=== PATIENT | female | born 1945 | race Caucasian/White ===

== ENCOUNTER → 2018-03-04 14:42 | Outpatient (CLI) | payer MEDICARE, OTHER, SELFPAY | PROVIDERS: Family Provider Internal Medicine; PCP Internal Medicine; Visit Provider Internal Medicine | DX: I87.2 Venous insufficiency (chronic) (peripheral) (principal); L97.811 Non-pressure chronic ulcer of other part of right lower leg limited to breakdown of skin | CPT/HCPCS: 11042; 99213 ==

== ENCOUNTER → 2018-03-12 13:27 | Outpatient (CLI) | payer MEDICARE, OTHER, SELFPAY | PROVIDERS: Family Provider Internal Medicine; PCP Internal Medicine; Visit Provider Internal Medicine | DX: S81.801A Unspecified open wound, right lower leg, initial encounter (principal) | CPT/HCPCS: 11042 ==

== ENCOUNTER → 2018-03-18 13:58 | Outpatient (CLI) | payer MEDICARE, OTHER, SELFPAY ==
--- NOTE | 2018-03-18 | DI.MRI.S_ITS ---
PROCEDURE: MR HEAD/BRAIN WO CON INDICATIONS: ALZHEIMER'S DISEASE TECHNIQUE: Non-contrast axial T1 spin echo, axial T2 fast spin echo, sagittal and axial FLAIR, coronal T2 fast spin echo, axial gradient echo, axial diffusion and ADC through the brain. COMPARISON: None. FINDINGS: Image quality: Excellent. CSF spaces: Ventricles appear symmetric in size and shape. Basal cisterns are patent. No extra-axial fluid collections. Brain: No intracranial bleeds or mass effects. There is mild cerebral volume loss for age. Minimal periventricular white matter chronic small vessel ischemic changes are noted. Brainstem appears normal. Diffusion-weighted images show no acute ischemic insults. No chronic ischemic insults. Normal intravascular flow voids are present. Skull and face: Calvarial bone marrow is normal in signal. Orbits are normal. Sinuses: There are small mucus retention cysts or polyps in maxillary sinuses bilaterally. Mastoids are clear. IMPRESSION: 1. No acute intracranial abnormalities. 2. Mild cerebral volume loss and minimal periventricular white matter chronic small vessel ischemic changes. 3. Small mucous retention cysts versus polyps in maxillary sinuses bilaterally. Dictated by: Arminda Hillman M.D. on 03/18/2018 at 13:50 Approved by: Arminda Hillman M.D. on 03/18/2018 at 15:33
== END ==
PROVIDERS: Family Provider Internal Medicine; PCP Internal Medicine; Visit Provider Internal Medicine
DX: G30.9 Alzheimer's disease, unspecified (principal); F02.80 Dementia in other diseases classified elsewhere, unspecified severity, without behavioral disturbance, psychotic disturbance, mood disturbance, and anxiety
CPT/HCPCS: 70551

== ENCOUNTER → 2018-03-19 10:18 | Outpatient (CLI) | payer MEDICARE, OTHER, SELFPAY | PROVIDERS: Family Provider Internal Medicine; PCP Internal Medicine; Visit Provider Internal Medicine | DX: L08.9 Local infection of the skin and subcutaneous tissue, unspecified (principal); S81.801A Unspecified open wound, right lower leg, initial encounter | CPT/HCPCS: 11042; 87070; 87075; 87205 ==

== ENCOUNTER → 2018-04-02 10:49 | Outpatient (CLI) | payer MEDICARE, OTHER, SELFPAY ==
--- NOTE | 2018-04-02 | OV.WND_ITS ---
Progress Note Details Patient Name: Jane Cardenas Patient Number: [id number] Patient Date of : 1945 Patient Date: 04/02/2018 Clinician: Naima Estrada Clinician Cosigner: Ivanna Sahni Physician / Reinforcing [employer] Machine Operator: Peyman Pereira SUBJECTIVE Chief Complaint This information was obtained from the patient Non-healing leg wound to R lower leg. Allergies penicillin HPI This information was obtained from the patient 04/02/18. Seen by Dr. Pereira. The patient does not report significant drainage associated with the chronic right lower leg trauma wound since her last visit. 03/19/18. Seen by Dr. Pereira. The patient does not report significant drainage associated with the chronic right lower leg trauma wound since her last visit and in general feels its beginning to improve. 03/12/18. Seen by Dr. Pereira. The patient does not report pain or significant drainage associated with the chronic right lower leg trauma wound since her last visit. 03/04/18. Seen by Dr. Pereira. The patient's new to our clinic and presents with a right lower leg trauma wound that's been present for about 6 weeks. She was seen in the walk in clinic recently and started on Bactrim for an associated infection. Past Medical History This information was obtained from the patient Patient has a medical history of: Osteoporosis Hyperthyroidism Dementia Complaints and Symptoms This information was obtained from the patient Patient complains of: General Notes: I have reviewed and concur with the Review of Systems and Past Family Social History documents completed by the clinician, I have reviewed and concur with the Wound Assessment document completed by the clinician Integumentary (Hair/Skin/Nails): Hemosiderin Staining, Open Sore Prior Wound History: Drainage, Erythema, Pain Psychiatric: Memory Loss Patient denies complaints or symptoms related to: Cardiovascular (Central): Irregular heart beat Cardiovascular (Central/Peripheral): Intermittent Claudication, Lower extremity (leg) resting pain, Lower extremity (leg) swelling Constitutional Symptoms (General Health): Fever Ear/Nose/Mouth/Throat: Hearing Loss / Aid Hematologic/Lymphatic: Bleeding / Clotting Disorders, Bleeding Tendency Neurological: Loss of Protective Sensation Respiratory: Shortness of Breath OBJECTIVE Constitutional BP elevated; Afebrile; Alert and in no distress. Well developed. Alert. Clean appearing.. Height/Length: 66 in (167.64 cm), Weight: 115.3 lbs (52.41 kgs), BMI: 18.6, Temperature: 97.8 ?F (36.56 ?C), Pulse: 54 bpm, Respiratory Rate: 18 breaths/min, Blood Pressure: 179/72 mmHg, Pulse Oximetry: 99 %. Ears, Nose, Mouth, and Throat: No clinically significant hearing loss on informal examination. Cardiovascular: 1+ right lower extremity edema. Integumentary (Hair, Skin) No periwound erythema, warmth, or significant drainage. No periwound rashes appreciated or noted otherwise.. Refer to appropriate clinician wound documentation for this visit; left lower leg wound extends to subcut with base partially covered with pink granulation, remainder fibrin and slough; improved in terms of epithelialization and granulation. Wound #1 Right Leg is a chronic Trauma Wound and has received a status of Not Healed. Subsequent wound encounter measurements are 1.3cm length x 0.7cm width x 0.1cm depth, with an area of 0.91 sq cm and a volume of 0.091 cubic cm. Hypergranulation was noted. No tunneling has been noted. No sinus tract has been noted. No undermining has been noted. There is a small amount of sero-sanguineous drainage noted which has no odor. The patient reports a wound pain of level 0/10. The wound margin is attached. Wound bed has Yes epithelialization, No eschar, Yes slough, Yes bright red, pink, firm granulation. The periwound skin texture is normal. The periwound skin moisture is normal. The periwound skin exhibited: Hemosiderosis. The temperature of the periwound skin is WNL. Periwound skin does not exhibit signs or symptoms of infection. Local Pulse is Palpable. Neurological: Cranial nerves grossly intact with symmetric function normal by informal observation.. ASSESSMENT Active Problems ICD-10 (Encounter Diagnosis) S81.801D - Unspecified open wound, right lower leg, subsequent encounter PROCEDURES Wound #1 Wound #1 (Trauma Wound) is located on the right leg. A skin/subcutaneous tissue level surgical debridement with a total area debrided of 1.19 sq cm was performed by Peyman Pereira MD. Subcutaneous was removed along with devitalized tissue: slough. The following instrument(s) were used: curette. Pain control was achieved using 4% Lido. A time out was conducted prior to the start of the procedure. A minimal amount of bleeding was controlled with pressure. The procedure was tolerated well with a pain level of 0 throughout and a pain level of 0 following the procedure. Post Debridement Measurements: 1.7cm length x 0.7cm width x 0.2cm depth; with an area of 1.19 sq cm and a volume of 0.238 cubic cm; PLAN Wound Orders: Wound #1 Right Leg Anesthetic Topical Xylocaine to wound bed. - In clinic only Cleanser Cleanse Wound: - Normal saline in clinic. May use distill water at home. Rinse and gentle wipe with clean gauze. May Shower. - Please avoid tap water. Cover while in the shower. May use a cast protector purchased from pharmacy. Dressings Primary dressing: - Bordered foam Change Dressing: - Every other day Additional Orders: Follow-Up Appointments Return Appointment: - - One week Other information: If you develop fever, chills, increased pain, drainage, redness or swelling please call our office. If after hours, respond to the ER. Should you experience any significant changes in your wound(s) or have any questions regarding your home care instructions please contact the wound center @ [phone]. If after hours, contact your primary care physician or go to the hospital emergency room. Scribing Attestation I attest, as the nurse, that I scribed these orders for the physician. I've reviewed the clinician's documentation and agree with the evaluation and plan as written. In addition, the patient's ulcer demonstrates evidence of non-viable devitalized tissue which will continue to benefit from sharp debridement to help promote granulation and expedite healing. Electronic Signature(s) Signed By: Date: Peyman Pereira MD 04/03/2018 08:42:30 Entered By: Peyman Pereira on 04/02/2018 11:43:33
== END ==
PROVIDERS: Family Provider Internal Medicine; PCP Internal Medicine; Visit Provider Internal Medicine
DX: S81.801A Unspecified open wound, right lower leg, initial encounter (principal)
CPT/HCPCS: 11042

== ENCOUNTER → 2018-04-09 11:47 | Outpatient (CLI) | payer MEDICARE, OTHER, SELFPAY ==
--- NOTE | 2018-04-09 | OV.WND_ITS ---
Progress Note Details Patient Name: Jane Cardenas Patient Number: [id number] Patient Date of : 1945 Patient Date: 04/09/2018 Clinician: Naima Estrada Physician / Asian Studies Professor: Adal Delarosa SUBJECTIVE Chief Complaint This information was obtained from the patient Non-healing leg wound to R lower leg. Allergies penicillin HPI This information was obtained from the patient 04/09/18. Seen by Antonio Delarosa PA-C. The patient reports no increase in drainage from her right lower leg wound since her last evaluation. 04/02/18. Seen by Dr. Pereira. The patient does not report significant drainage associated with the chronic right lower leg trauma wound since her last visit. 03/19/18. Seen by Dr. Pereira. The patient does not report significant drainage associated with the chronic right lower leg trauma wound since her last visit and in general feels its beginning to improve. 03/12/18. Seen by Dr. Pereira. The patient does not report pain or significant drainage associated with the chronic right lower leg trauma wound since her last visit. 03/04/18. Seen by Dr. Pereira. The patient's new to our clinic and presents with a right lower leg trauma wound that's been present for about 6 weeks. She was seen in the walk in clinic recently and started on Bactrim for an associated infection. 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 Past Medical History This information was obtained from the patient Patient has a medical history of: Osteoporosis Hyperthyroidism Dementia Complaints and Symptoms This information was obtained from the patient Patient complains of: General Notes: I have reviewed and concur with the Review of Systems and Past Family Social History documents completed by the clinician, I have reviewed and concur with the Wound Assessment document completed by the clinician Integumentary (Hair/Skin/Nails): Hemosiderin Staining, Open Sore Prior Wound History: Drainage, Erythema, Pain Psychiatric: Memory Loss Patient denies complaints or symptoms related to: Cardiovascular (Central): Irregular heart beat Cardiovascular (Central/Peripheral): Intermittent Claudication, Lower extremity (leg) resting pain, Lower extremity (leg) swelling Constitutional Symptoms (General Health): Fever Ear/Nose/Mouth/Throat: Hearing Loss / Aid Hematologic/Lymphatic: Bleeding / Clotting Disorders, Bleeding Tendency Neurological: Loss of Protective Sensation Respiratory: Shortness of Breath OBJECTIVE Constitutional Vital signs reviewed and noted. Well developed, lucid, and in no acute distress. . Height/Length: 66 in (167.64 cm), Weight: 117.3 lbs (53.32 kgs), BMI: 18.9, Temperature: 98.7 ?F (37.06 ?C), Pulse: 61 bpm, Respiratory Rate: 18 breaths/min, Blood Pressure: 163/77 mmHg, Pulse Oximetry: 99 %. Eyes: Conjunctiva clear and without icterus. Pupils are equal and round; EOM's intact. Ears, Nose, Mouth, and Throat: External inspection of ears and nose appear normal and without suspicous lesions. Respiratory: No respiratory distress. Even respirations and without use of accessory muscles.. Gastrointestinal (GI): Non-obese. Nondistended.. Integumentary (Hair, Skin) Refer to appropriate clinician wound documentation for this visit; ulcer extends to subcutaneous fat layer. . Wound #1 Right Leg is a chronic Trauma Wound and has received a status of Not Healed. Subsequent wound encounter measurements are 0.1cm length x 0.1cm width x 0.1cm depth, with an area of 0.01 sq cm and a volume of 0.001 cubic cm. Hypergranulation was noted. No tunneling has been noted. No sinus tract has been noted. No undermining has been noted. There is a scant amount of none drainage noted which has no odor. The patient reports a wound pain of level 0/10. The wound margin is attached. Wound bed has Yes epithelialization, No eschar, Yes slough, No granulation. The periwound skin texture is normal. The periwound skin moisture is normal. The periwound skin exhibited: Hemosiderosis. The temperature of the periwound skin is WNL. Periwound skin does not exhibit signs or symptoms of infection. Local Pulse is Palpable. Psychiatric: Normal affect. Mood appropriate.. ASSESSMENT Active Problems ICD-10 (Encounter Diagnosis) S81.801D - Unspecified open wound, right lower leg, subsequent encounter PROCEDURES Wound #1 Wound #1 (Trauma Wound) is located on the right leg. A non-selective mechanical debridement with a total area debrided of 0.02 sq cm was performed by Adal Delarosa PA. Non-viable tissue was removed.The procedure was tolerated well with a pain level of 0 throughout and a pain level of 0 following the procedure. Post Debridement Measurements: 0.1cm length x 0.2cm width x 0.1cm depth; with an area of 0.02 sq cm and a volume of 0.002 cubic cm; General Notes: Drainage removed. PLAN Wound Orders: Wound #1 Right Leg Anesthetic Topical Xylocaine to wound bed. - In clinic only Cleanser Cleanse Wound: - Normal saline in clinic. May use distill water at home. Rinse and gentle wipe with clean gauze. May Shower. - Please avoid tap water. Cover while in the shower. May use a cast protector purchased from pharmacy. Dressings Primary dressing: - Bordered foam Change Dressing: - Every three days. Additional Orders: Follow-Up Appointments Return Appointment: - - two weeks Other information: If you develop fever, chills, increased pain, drainage, redness or swelling please call our office. If after hours, respond to the ER. Should you experience any significant changes in your wound(s) or have any questions regarding your home care instructions please contact the wound center @ [phone]. If after hours, contact your primary care physician or go to the hospital emergency room. Scribing Attestation I attest, as the nurse, that I scribed these orders for the physician. I've reviewed the clinician's documentation and agree with the evaluation and plan as written. The patient's condition continues to be medically complex requiring continued and regular specialty wound care clinic visits. To that end we will continue with routine dressing changes and in clinic medical assessments including surveillance for bacterial infection as well as routine debridements of non-viable tissue when needed. Electronic Signature(s) Signed By: Date: Antonio Delarosa 04/13/2018 12:48:23 Entered By: Antonio Delarosa on 04/13/2018 10:33:37
== END ==
PROVIDERS: Family Provider Internal Medicine; PCP Internal Medicine; Visit Provider Physician Assistant
DX: S81.801D Unspecified open wound, right lower leg, subsequent encounter (principal)
CPT/HCPCS: 99212

== ENCOUNTER → 2018-04-23 10:00 | Outpatient (CLI) | payer MEDICARE, OTHER, SELFPAY ==
--- NOTE | 2018-04-23 | OV.WND_ITS ---
Progress Note Details Patient Name: Jane Cardenas Patient Number: [id number] Patient Date of : 1945 Patient Date: 04/23/2018 Clinician: Brittney Kumar Clinician Cosigner: Naima Estrada Physician / Materials Branch Chief: Peyman Pereira SUBJECTIVE Chief Complaint This information was obtained from the patient Non-healing leg wound to R lower leg. Allergies penicillin HPI This information was obtained from the patient 04/23/18. Seen by Dr. Pereira. The patient does not report significant drainage associated with the chronic right lower leg trauma wound since her last visit. 04/09/18. Seen by Antonio Delarosa PA-C. The patient reports no increase in drainage from her right lower leg wound since her last evaluation. 04/02/18. Seen by Dr. Pereira. The patient does not report significant drainage associated with the chronic right lower leg trauma wound since her last visit. 03/19/18. Seen by Dr. Pereira. The patient does not report significant drainage associated with the chronic right lower leg trauma wound since her last visit and in general feels its beginning to improve. 03/12/18. Seen by Dr. Pereira. The patient does not report pain or significant drainage associated with the chronic right lower leg trauma wound since her last visit. 03/04/18. Seen by Dr. Pereira. The patient's new to our clinic and presents with a right lower leg trauma wound that's been present for about 6 weeks. She was seen in the walk in clinic recently and started on Bactrim for an associated infection. Past Medical History This information was obtained from the patient Patient has a medical history of: Osteoporosis Hyperthyroidism Dementia Complaints and Symptoms This information was obtained from the patient Patient complains of: General Notes: I have reviewed and concur with the Review of Systems and Past Family Social History documents completed by the clinician, I have reviewed and concur with the Wound Assessment document completed by the clinician Integumentary (Hair/Skin/Nails): Hemosiderin Staining, Open Sore Prior Wound History: Drainage, Erythema, Pain Psychiatric: Memory Loss Patient denies complaints or symptoms related to: Cardiovascular (Central): Irregular heart beat Cardiovascular (Central/Peripheral): Intermittent Claudication, Lower extremity (leg) resting pain, Lower extremity (leg) swelling Constitutional Symptoms (General Health): Fever Ear/Nose/Mouth/Throat: Hearing Loss / Aid Hematologic/Lymphatic: Bleeding / Clotting Disorders, Bleeding Tendency Neurological: Loss of Protective Sensation Respiratory: Shortness of Breath OBJECTIVE Constitutional BP elevated; Afebrile; Alert and in no distress. Well developed. Alert. Clean appearing.. Height/Length: 66 in (167.64 cm), Weight: 114.7 lbs (52.14 kgs), BMI: 18.5, Temperature: 98.6 ?F (37 ?C), Pulse: 67 bpm, Respiratory Rate: 18 breaths/min, Blood Pressure : 147/69 mmHg, Pulse Oximetry: 99 %. Respiratory: No respiratory distress. Even respirations and without use of accessory muscles.. Integumentary (Hair, Skin) Hemosiderin staining noted over right lower leg. Refer to appropriate clinician wound documentation for this visit.. Wound #1 Right Leg is a chronic Trauma Wound and has received an outcome of Healed - no new wound(s). Subsequent wound encounter measurements are 0cm length x 0cm width x 0cm depth, with an area of 0 sq cm and a volume of 0 cubic cm. Hypergranulation was noted. No tunneling has been noted. No sinus tract has been noted. No undermining has been noted. There is a scant amount of none drainage noted which has no odor. The patient reports a wound pain of level 0/10. The wound margin is attached. Wound bed has Yes epithelialization, No eschar, Yes slough, No granulation. The periwound skin texture is normal. The periwound skin moisture is normal. The periwound skin exhibited: Hemosiderosis. The temperature of the periwound skin is WNL. Periwound skin does not exhibit signs or symptoms of infection. Local Pulse is Palpable. Neurological: Cranial nerves grossly intact with symmetric function normal by informal observation.. ASSESSMENT Active Problems ICD-10 (Encounter Diagnosis) S81.801D - Unspecified open wound, right lower leg, subsequent encounter PLAN Additional Orders: Dressings Primary dressing: - Cover with a boarder foam for one week. Follow-Up Appointments Discharge from Outpatient Services. Scribing Attestation I attest, as the nurse, that I scribed these orders for the physician. General Notes: Please wear compression stocking. I've reviewed the clinician's documentation and agree with the evaluation and plan as written. In addition the patient's last remiaining complex wound is now healed. The patient is invited to return to our clinic for treatment of any future complex wounds. Post wound care and strategies to avoid recurrences were discussed. Electronic Signature(s) Signed By: Date: Peyman Pereira MD 04/23/2018 15:34:08 Entered By: Peyman Pereira on 04/23/2018 12:28:22
== END ==
PROVIDERS: Family Provider Internal Medicine; PCP Internal Medicine; Visit Provider Internal Medicine
DX: S81.801D Unspecified open wound, right lower leg, subsequent encounter (principal)
CPT/HCPCS: 99212

== ENCOUNTER → 2018-09-08 14:17 | Outpatient (CLI) | payer MEDICARE, OTHER, SELFPAY | PROVIDERS: Visit Provider Physician Assistant | DX: M81.0 Age-related osteoporosis without current pathological fracture (principal); Z78.0 Asymptomatic menopausal state; E07.9 Disorder of thyroid, unspecified; Z82.62 Family history of osteoporosis | CPT/HCPCS: 77080 ==

== ENCOUNTER 2019-05-25 15:25 | Emergency (ER) | payer MEDICARE, OTHER, SELFPAY ==
--- NOTE | 2019-05-25 | DI.RAD.S_ITS ---
PROCEDURE: XR ANKLE RT 2V INDICATIONS: POST REDUCTION TECHNIQUE: 2 views of the ankle were acquired. COMPARISON: [facility], CR, XR ANKLE RT 2V, 05/25/2019, 17:52. FINDINGS: Bones: There has been improvement in alignment of the tibiotalar articulation with moderate persistent anterior joint space widening, slight anterior tibial subluxation and posterior impaction of the tibia on the talar dome. The at the transverse alignment remains nearly normal. Mild displacement of the medial malleolar fragment. Soft tissues: Splint material present. IMPRESSION: Improved, but not quite anatomic alignment post reduction of trimalleolar fracture dislocation. Dictated by: Radha Moreno M.D. on 05/25/2019 at 19:34 Approved by: Radha Moreno M.D. on 05/25/2019 at 19:35
[2019-05-25 15:25] VITALS: BP 194/87; PULSE 86; RESP 16; TEMP 37.3; O2SAT 100
--- NOTE | 2019-05-25 15:31 | DI.RAD.S_ITS ---
PROCEDURE: XR ANKLE RT MIN 3V INDICATIONS: rt ankle deformity, twisting injury TECHNIQUE: 3 views of the ankle were acquired. COMPARISON: None. FINDINGS: Bones: There is a trimalleolar fracture dislocation at the right ankle, with anterior dislocation of the tibial plafond across the talar dome. An associated posterior malleolar fracture is present, displaced dorsally. The base of the medial malleolus is fractured and mildly displaced. A diagonal fracture extends through the distal fibular metadiaphyseal junction. Ankle mortise is therefore significantly malaligned. No suspicious bony lesions. Soft tissues: No tibiotalar joint effusion. Achilles tendon appears normal. IMPRESSION: Trimalleolar fracture dislocation as discussed. Orthopedic surgical consultation is anticipated. Dictated by: Michoacano Perez M.D. on 05/25/2019 at 15:52 Approved by: Michoacano Perez M.D. on 05/25/2019 at 15:58
--- NOTE | 2019-05-25 17:10 | ED.LOWEXIN ---
HPI - Extremity Injury (Lower) <ALEX Curry - Last Filed: 05/25/19 20:07> General Chief Complaint: Extremity Injury, Lower Stated Complaint: GLF Time Seen by Provider: 05/25/19 15:32 Source: patient and family Mode of arrival: EMS Limitations: no limitations History of Present Illness HPI Narrative: This is a pleasant 73-year-old female, non-smoker, brought in by EMS with her in chief complaint right ankle, (R>L) pain and swelling. The patient had fell off 9 inch deck when she tried fill the bird bath and her R foot went under her body during this. She denies any other injuries/pain such as head, hip, knee, foot. She denies tingling numbness distal to injury site. She has a history of Alzheimer according to her and has been having increasing balance problem. She arrived by EMS with splinted with a pillow and cold pack. Related Data Home Medications Medication Instructions Recorded Confirmed denosumab 60 mg/mL subcutaneous 60 mg SUBCUT [id number] 02/27/18 05/25/19 syringe levothyroxine 88 mcg PO QPM 05/25/19 05/25/19 losartan 50 mg PO DAILY 05/25/19 05/25/19 Previous Rx's Medication Instructions Recorded hydrocodone-acetaminophen [George] 1 tab PO Q6H PRN #10 tab 05/25/19 Allergies Allergy/AdvReac Type Severity Reaction Status Date / Time Penicillins Allergy do not Verified 02/27/18 15:48 know-was young Review of Systems <ALEX Curry - Last Filed: 05/25/19 20:07> Review of Systems General: Denies fever, chills, fatigue, malaise, sweats. HEENT: Denies sinus pain, ear pain, sore throat, difficulty swallowing, dizziness. Respiratory: Denies dyspnea, cough, wheezing, hemoptysis, sputum. Cardiovascular: Denies chest pain, palpitations, orthopnea, edema. Gastrointestinal: Denies nausea, vomiting, abdominal pain, diarrhea, constipation, melena. : Denies dysuria, frequency, incontinence, hematuria, urinary retention. Musculoskeletal: Is see HPI Skin: Denies rash, skin lesions, or other. Neurologic: Denies weakness, headache, numbness, change in speech, confusion, seizures, incoordination. Psychiatric: No concerning psychosocial issues. 12-point review of systems is negative except for those stated above. PFSH <ALEX Curry - Last Filed: 05/25/19 20:07> Medical History (Updated 05/25/19 @ 19:31 by ALEX Curry) Alzheimer disease (Acute) HTN (hypertension) (Acute) Surgical History (Updated 05/25/19 @ 17:27 by ALEX Curry) History of thyroidectomy (Acute) Social History Smoking Status: Never smoker Social History Smoking Status: Never smoker Exam <ALEX Curry - Last Filed: 05/25/19 20:07> Narrative Exam Narrative: GEN: Alert, oriented x 3, well appearing and nourished, and in no acute distress. Head: Normal cephalic, atraumatic. No scalp or temporal tenderness, palpable mass or rash. EYES: Pupils are equal, round, and reactive to light and accommodation. Extraocular muscles are intact bilaterally. There is no subconjunctival hemorrhage, exudate and sclera non-icteric. ENT: Nose without bleeding, purulent discharge. Mucous membrane moist, no mucosal lesion, airway patent. Neck: Trachea in midline. No JVD, non-tender without lymphadenopathy. No masses or thyroid megaly. Supple, non-tender and no meningeal signs. CARDIAC: Normal regular rate and rhythm without murmurs, gallops, or rubs. No chest wall tenderness. No peripheral edema, cyanosis or pallor. Capillary refill is less than 2 seconds. No carotid bruits. RESPIRATORY: Lungs are cleat to auscultate bilaterally. No cough, wheezes, rales, or rhonchi. No stridor, respiratory distress, increase work of breathing, or accessary muscle used. ABD: Abdomen soft, nontender and non-distended. No guarding or rebound tenderness to palpate. Bowel sounds are normal in all 4 quadrants. There is no palpable masses or organomegaly. BACK: Nontender without deformity or crepitance. No flank tenderness. NEUROLOGICAL: Alert and oriented to place and person. Sensation and motor function intact bilaterally. No facial droops, dysphasia. PSYCHIATRIC: Good judgement and reason, without hallucinations, abnormal affect or abnormal behaviors during the examination. Patient is not suicidal. Initial Vital Signs Initial Vital Signs: Vital Signs Temperature 99.2 F 05/25/19 15:25 Pulse Rate 86 05/25/19 15:25 Respiratory Rate 16 05/25/19 15:25 Blood Pressure 194/87 H 05/25/19 15:25 Pulse Oximetry 100 05/25/19 15:25 Extrem Right upper extremity: hand Details: abrasion (on mid dorsal aspect mid finger) Left upper extremity: normal to inspection Right lower extremity: normal capillary refill, edema and ankle Details: abnormal to inspection, tenderness, swelling, edema and abnormal ROM; abnormal to inspection Left lower extremity: normal to inspection <Freddy Rubio DO - Last Filed: 05/26/19 19:24> Initial Vital Signs Initial Vital Signs: Vital Signs Temperature 99.2 F 05/25/19 15:25 Pulse Rate 86 05/25/19 15:25 Respiratory Rate 16 05/25/19 15:25 Blood Pressure 194/87 H 05/25/19 15:25 Pulse Oximetry 100 05/25/19 15:25 Procedures <ALEX Curry Last Filed: 05/25/19 20:07> Orthopedic Fracture Reduction Fracture #1: Time Out Performed: Yes Side: right Fracture Reduction Location: tibia, fibula and other (trimalleolar fracture with anterior ankle dislocation of the tibial plafond across the talar dome) Analgesia: other (IV Fentanyl for pain management) Technique: direct manipulation and other (RAD exam) Post-reduction neuro exam: intact Post-reduction vascular exam: intact Splint Applied: Yes Patient Tolerated Procedure: Well Orthopedic Splinting/Casting Injury #1: Side: right Lower Extremity Injury Location: ankle Lower Extremity Immobilizer: posterior splint and stirrup splint Other Orthopedic Equipment: other (family picked up a wheelchair) Post splinting neuro exam: intact Post splinting vascular exam: intact Placed by: Provider Additional Comments: R ankle closed reduction done while applying the splint attempted x2 unsuccessful attempts by DIANE Deluca and by [address] Rubio. Course <ALEX Curry Last Filed: 05/25/19 20:07> Orders Ordered: Discontinued Medications Fentanyl (Sublimaze) 25 mcg IV Q1HR PRN PRN Reason: Pain, Severe (7-10) Last Admin: 05/25/19 18:15 Dose: 25 mcg Admin: 05/25/19 17:39 Dose: 25 mcg Fentanyl (Sublimaze) 25 mcg IV NOW ONE Stop: 05/25/19 19:24 Last Admin: 05/25/19 19:00 Dose: 25 mcg Ondansetron HCl (Zofran) 4 mg IV NOW ONE Stop: 05/25/19 17:09 Vital Signs - 8 hr 05/25/19 15:25 Temperature 99.2 F Pulse Rate 86 Respiratory Rate 16 Blood Pressure 194/87 H Pulse Oximetry 100 <Freddy Rubio DO - Last Filed: 05/26/19 19:24> Orders Ordered: Discontinued Medications Fentanyl (Sublimaze) 25 mcg IV Q1HR PRN PRN Reason: Pain, Severe (7-10) Last Admin: 05/25/19 18:15 Dose: 25 mcg Admin: 05/25/19 17:39 Dose: 25 mcg Fentanyl (Sublimaze) 25 mcg IV NOW ONE Stop: 05/25/19 19:24 Last Admin: 05/25/19 19:00 Dose: 25 mcg Ondansetron HCl (Zofran) 4 mg IV NOW ONE Stop: 05/25/19 17:09 Vital Signs - 8 hr 05/25/19 15:25 Temperature 99.2 F Pulse Rate 86 Respiratory Rate 16 Blood Pressure 194/87 H Pulse Oximetry 100 MDM - Extremity Injury (Lower) <ALEX Curry - Last Filed: 05/25/19 20:07> Differential Diagnosis Likely ankle sprain and strain, ankle fracture and other (Ankle dislocation) Medical Records Attestation: I reviewed the patient's medical records. Imaging Data XR-ankle R, initial: Radiologist's impression: [address] [address] XRay Report Signed Patient: Jane Cardenas CMR#: [id number] : 6Acct:[id number] Age/Sex: 73 / FDate of Service: 05/25/19 Loc: ED Accession Number: [id number] Procedure: XR ankle RT min 3V Ordering Provider: Freddy Rubio D.O. PROCEDURE: XR ANKLE RT MIN 3V INDICATIONS: rt ankle deformity, twisting injury TECHNIQUE: 3 views of the ankle were acquired. COMPARISON: None. FINDINGS: Bones: There is a trimalleolar fracture dislocation at the right ankle, with anterior dislocation of the tibial plafond across the talar dome. An associated posterior malleolar fracture is present, displaced dorsally. The base of the medial malleolus is fractured and mildly displaced. A diagonal fracture extends through the distal fibular metadiaphyseal junction. Ankle mortise is therefore significantly malaligned. No suspicious bony lesions. Soft tissues: No tibiotalar joint effusion. Achilles tendon appears normal. IMPRESSION: Trimalleolar fracture dislocation as discussed. Orthopedic surgical consultation is anticipated. Dictated by: Michoacano Perez M.D. on 05/25/2019 at 15:52 Approved by: Michoacano Perez M.D. on 05/25/2019 at 15:58 XR-ankle R, 1st reduction: Radiologist's impression: Jane Cardenas 73 F 1945 [place] [address] XRay Report Signed Patient: Jane Cardenas CMR#: [id number] : [id number]:[id number] Age/Sex: 73 / FDate of Service: 05/25/19 Loc: ED Accession Number: [id number] Procedure: XR ankle RT 2V Ordering Provider: Keaton Deluca PROCEDURE: XR ANKLE RT 2V INDICATIONS: post reduction TECHNIQUE: 2 views of the ankle were acquired. COMPARISON: [facility], , XR ANKLE RT MIN 3V, 05/25/2019, 15:36. FINDINGS: Bones: Trimalleolar ankle fracture dislocation with persistent tibiotalar dislocation post attempt at reduction. There is slightly decreased impaction of the distal tibia on the talar dome. Soft tissues: Splint material surrounds the ankle. No radiodense foreign body is within the soft tissue. IMPRESSION: Trimalleolar fracture dislocation without successful reduction Dictated by: Radha Moreno M.D. on 05/25/2019 at 18:42 Approved by: Radha Moreno M.D. on 05/25/2019 at 18:45 XR-R ankle post 2nd reduction: Radiologist's impression: [facility] [address] [place] [id number] XRay Report Signed Patient: Jane Cardenas CMR#: [id number] : 6Acct:[id number] Age/Sex: 73 / FDate of Service: 05/25/19 Loc: ED Accession Number: [id number] Procedure: XR ankle RT 2V Ordering Provider: Keaton Deluca PROCEDURE: XR ANKLE RT 2V INDICATIONS: POST REDUCTION TECHNIQUE: 2 views of the ankle were acquired. COMPARISON: [facility], , XR ANKLE RT 2V, 05/25/2019, 17:52. FINDINGS: Bones: There has been improvement in alignment of the tibiotalar articulation with moderate persistent anterior joint space widening, slight anterior tibial subluxation and posterior impaction of the tibia on the talar dome. The at the transverse alignment remains nearly normal. Mild displacement of the medial malleolar fragment. Soft tissues: Splint material present. IMPRESSION: Improved, but not quite anatomic alignment post reduction of trimalleolar fracture dislocation. Dictated by: Radha Moreno M.D. on 05/25/2019 at 19:34 Approved by: Radha Moreno M.D. on 05/25/2019 at 19:35 [facility] Narrative Medical decision making narrative: This is a 73-year-old female came by ambulance after a mechanical fall who sustained trimalleolar fracture with anterior dislocation of the tibia platform across the talar dome on her right ankle. She denied pain on hips, knee, foot. She denies hitting her head from this fall. Her neurovascular exam was normal and she was able to move her toes. Dr. Acuna was consulted over the phone. He suggested a posterior and stirrup lower leg splint with non weight-bearing and to follow up with the [facility] in a couple of days. Dr. Acuna did not think the patient is to be admitted for surgery tonight. The patient was medicated with IV fentanyl 25 mcg x 3 doses prior closed reductions. Two unsuccessful attempts were made by myself. Dr. Rubio had improved closed reduction on R anterior disloation of the tibial platfond across the talar dome. The patient tolerated the procedure well. Post reduction x-ray was taken which showed improved but not required anatomic alignment post reduction of trimalleolar fracture dislocation. The patient had provided information of [facility] and advised to follow up in a couple of days. The patient and spouse are well known by Dr. Noemi Aguilar and are planning to call the clinic tomorrow. I emphasized on nonweightbearing and patient has all wheelchair at home. The patient's declined using crutches since she already has problem with the balance. The return precautions were discussed with the patient and , advised RICE therapy to decrease swelling and pain. All questions were answered and the patient and agreed with treatment plan. Discharge Plan Departure Patient Disposition: Home Clinical Impression: Fracture of distal end of right tibia Qualifiers: Encounter type: initial encounter Fracture type: closed Fracture morphology: unspecified fracture morphology Qualified Code(s): S82.301A - Unspecified fracture of lower end of right tibia, initial encounter for closed fracture Fracture of distal end of right fibula Qualifiers: Encounter type: initial encounter Fracture type: closed Fracture morphology: unspecified fracture morphology Qualified Code(s): S82.831A - Other fracture of upper and lower end of right fibula, initial encounter for closed fracture Discharge Date/Time: 05/25/19 19:53 Interventions: ED Discharge Assessment Last Done: 05/25/19 19:53 Instructions: DI for Ankle Fracture Activity Restrictions/Additional Instructions: You have been diagnosed with [ R ankle fracture. Your x-ray test shows Trimalleolar fracture dislocation without joint effusion or Achilles tendon injury]. What to do: *Take your medications as directed. You could use [id number] Tylenol as needed for pain. Please see precaution we need take George. This medication will cause drowsiness and constipation. Please use [id number] stool softener as needed. Please use RICE therapy as we discussed and use ice pack next couple of days and elevated affected leg above chest level to decrease swelling and pain. Please to not get your splint wet and do not bear weight at all times on injured leg. * please give a call to schedule [facility] to follow up with Dr. Aguilar as you requested. Follow up with your primary care provider in 2-3 days, call for an appointment. Let them know you were seen in the ED and that we asked you to be seen in follow up. *Return to ED if you have any new, worsening, or concerning symptoms, such as [severe pain, swelling, pale and cool toes, tingling numbness to toes, chest pain, breathing difficulty, unable to tolerate fluids, or any acute concerns]. Prescriptions: New hydrocodone-acetaminophen [George] 5-325 mg tablet 1 tab PO Q6H PRN (Reason: pain) Qty: 10 RF: 0 No Action denosumab [Prolia] 60 mg/mL syringe 60 mg SUBCUT [id number] RF: 0 losartan 50 mg tablet 50 mg PO DAILY RF: 0 levothyroxine 88 mcg tablet 88 mcg PO QPM RF: 0 Referrals: [facility] [Provider Group] Noemi Aguilar MD [Physician] - <Freddy Rubio DO - Last Filed: 05/26/19 19:24> Cosign ED Attending Anita Attestation: I was available for consultation during this patient's emergency department encounter
--- NOTE | 2019-05-25 17:13 | ED_ITS ---
HPI - Extremity Injury (Lower) <ALEX Curry - Last Filed: 05/25/19 20:07> General Chief Complaint: Extremity Injury, Lower Stated Complaint: GLF Time Seen by Provider: 05/25/19 15:32 Source: patient and family Mode of arrival: EMS Limitations: no limitations History of Present Illness HPI Narrative: This is a pleasant 73-year-old female, non-smoker, brought in by EMS with her in chief complaint right ankle, (R>L) pain and swelling. The patient had fell off 9 inch deck when she tried fill the bird bath and her R foot went under her body during this. She denies any other injuries/pain such as head, hip, knee, foot. She denies tingling numbness distal to injury site. She has a history of Alzheimer according to her and has been having increasing balance problem. She arrived by EMS with splinted with a pillow and cold pack. Related Data Home Medications Medication Instructions Recorded Confirmed denosumab 60 mg/mL subcutaneous 60 mg SUBCUT [id number] 02/27/18 05/25/19 syringe levothyroxine 88 mcg PO QPM 05/25/19 05/25/19 losartan 50 mg PO DAILY 05/25/19 05/25/19 Previous Rx's Medication Instructions Recorded hydrocodone-acetaminophen [[place]] 1 tab PO Q6H PRN #10 tab 05/25/19 Allergies Allergy/AdvReac Type Severity Reaction Status Date / Time Penicillins Allergy do not Verified 02/27/18 15:48 know-was young Review of Systems <ALEX Curry - Last Filed: 05/25/19 20:07> Review of Systems General: Denies fever, chills, fatigue, malaise, sweats. HEENT: Denies sinus pain, ear pain, sore throat, difficulty swallowing, dizziness. Respiratory: Denies dyspnea, cough, wheezing, hemoptysis, sputum. Cardiovascular: Denies chest pain, palpitations, orthopnea, edema. Gastrointestinal: Denies nausea, vomiting, abdominal pain, diarrhea, constipation, melena. : Denies dysuria, frequency, incontinence, hematuria, urinary retention. Musculoskeletal: Is see HPI Skin: Denies rash, skin lesions, or other. Neurologic: Denies weakness, headache, numbness, change in speech, confusion, seizures, incoordination. Psychiatric: No concerning psychosocial issues. 12-point review of systems is negative except for those stated above. PFSH <ALEX Curry - Last Filed: 05/25/19 20:07> Medical History (Updated 05/25/19 @ 19:31 by ALEX Curry) Alzheimer disease (Acute) HTN (hypertension) (Acute) Surgical History (Updated 05/25/19 @ 17:27 by ALEX Curry) History of thyroidectomy (Acute) Social History Smoking Status: Never smoker Social History Smoking Status: Never smoker Exam <ALEX Curry - Last Filed: 05/25/19 20:07> Narrative Exam Narrative: GEN: Alert, oriented x 3, well appearing and nourished, and in no acute distress. Head: Normal cephalic, atraumatic. No scalp or temporal tenderness, palpable mass or rash. EYES: Pupils are equal, round, and reactive to light and accommodation. Extraocular muscles are intact bilaterally. There is no subconjunctival hemorrhage, exudate and sclera non-icteric. ENT: Nose without bleeding, purulent discharge. Mucous membrane moist, no mucosal lesion, airway patent. Neck: Trachea in midline. No JVD, non-tender without lymphadenopathy. No masses or thyroid megaly. Supple, non-tender and no meningeal signs. CARDIAC: Normal regular rate and rhythm without murmurs, gallops, or rubs. No chest wall tenderness. No peripheral edema, cyanosis or pallor. Capillary ref ill is less than 2 seconds. No carotid bruits. RESPIRATORY: Lungs are cleat to auscultate bilaterally. No cough, wheezes, rales, or rhonchi. No stridor, respiratory distress, increase work of breat carlos, or accessary muscle used. ABD: Abdomen soft, nontender and non-distended. No guarding or rebound tenderness to palpate. Bowel sounds are normal in all 4 quadrants. There is no palpable masses or organomegaly. BACK: Nontender without deformity or crepitance. No flank tenderness. NEUROLOGICAL: Alert and oriented to place and person. Sensation and motor function intact bilaterally. No facial droops, dysphasia. PSYCHIATRIC: Good judgement and reason, without hallucinations, abnormal affect or abnormal behaviors during the examination. Patient is not suicidal. Initial Vital Signs Initial Vital Signs: Vital Signs Temperature 99.2 F 05/25/19 15:25 Pulse Rate 86 05/25/19 15:25 Respiratory Rate 16 05/25/19 15:25 Blood Pressure 194/87 H 05/25/19 15:25 Pulse Oximetry 100 05/25/19 15:25 Extrem Right upper extremity: hand Details: abrasion (on mid dorsal aspect mid finger) Left upper extremity: normal to inspection Right lower extremity: normal capillary refill, edema and ankle Details: abnormal to inspection, tenderness, swelling, edema and abnormal ROM; abnormal to inspection Left lower extremity: normal to inspection <Freddy Rubio DO - Last Filed: 05/26/19 19:24> Initial Vital Signs Initial Vital Signs: Vital Signs Temperature 99.2 F 05/25/19 15:25 Pulse Rate 86 05/25/19 15:25 Respiratory Rate 16 05/25/19 15:25 Blood Pressure 194/87 H 05/25/19 15:25 Pulse Oximetry 100 05/25/19 15:25 Procedures <ALEX Curry - Last Filed: 05/25/19 20:07> Orthopedic Fracture Reduction Fracture #1: Time Out Performed: Yes Side: right Fracture Reduction Location: tibia, fibula and other (trimalleolar fracture with anterior ankle dislocation of the tibial plafond across the talar dome) Analgesia: other (IV Fentanyl for pain management) Technique: direct manipulation and other (RAD exam) Post-reduction neuro exam: intact Post-reduction vascular exam: intact Splint Applied: Yes Patient Tolerated Procedure: Well Orthopedic Splinting/Casting Injury #1: Side: right Lower Extremity Injury Location: ankle Lower Extremity Immobilizer: posterior splint and stirrup splint Other Orthopedic Equipment: other (family picked up a wheelchair) Post splinting neuro exam: intact Post splinting vascular exam: intact Placed by: Provider Additional Comments: R ankle closed reduction done while applying the spl int attempted x2 unsuccessful attempts by DIANE Deluca and by [address] Rubio. Course <ALEX Curry - Last Filed: 05/25/19 20:07> Orders Ordered: Discontinued Medications Fentanyl (Sublimaze) 25 mcg IV Q1HR PRN PRN Reason: Pain, Severe (7-10) Last Admin: 05/25/19 18:15 Dose: 25 mcg Admin: 05/25/19 17:39 Dose: 25 mcg Fentanyl (Sublimaze) 25 mcg IV NOW ONE Stop: 05/25/19 19:24 Last Admin: 05/25/19 19:00 Dose: 25 mcg Ondansetron HCl (Zofran) 4 mg IV NOW ONE Stop: 05/25/19 17:09 Vital Signs - 8 hr 05/25/19 15:25 Temperature 99.2 F Pulse Rate 86 Respiratory Rate 16 Blood Pressure 194/87 H Pulse Oximetry 100 <Freddy Rubio DO - Last Filed: 05/26/19 19:24> Orders Ordered: Discontinued Medications Fentanyl (Sublimaze) 25 mcg IV Q1HR PRN PRN Reason: Pain, Severe (7-10) Last Admin: 05/25/19 18:15 Dose: 25 mcg Admin: 05/25/19 17:39 Dose: 25 mcg Fentanyl (Sublimaze) 25 mcg IV NOW ONE Stop: 05/25/19 19:24 Last Admin: 05/25/19 19:00 Dose: 25 mcg Ondansetron HCl (Zofran) 4 mg IV NOW ONE Stop: 05/25/19 17:09 Vital Signs - 8 hr 05/25/19 15:25 Temperature 99.2 F Pulse Rate 86 Respiratory Rate 16 Blood Pressure 194/87 H Pulse Oximetry 100 MDM - Extremity Injury (Lower) <ALEX Curry - Last Filed: 05/25/19 20:07> Differential Diagnosis Likely ankle sprain and strain, ankle fracture and other (Ankle dislocation) Medical Records Attestation: I reviewed the patient's medical records. Imaging Data XR-ankle R, initial: Radiologist's impression: [address] [address] XRay Report Signed Patient: Jane Cardenas CMR#: [id number] : 1945cct:[id number] Age/Sex: 73 / FDate of Service: 05/25/19 Loc: ED Accession Number: [id number] Procedure: XR ankle RT min 3V Ordering Provider: Freddy Rubio D.O. PROCEDURE: XR ANKLE RT MIN 3V INDICATIONS: rt ankle deformity, twisting injury TECHNIQUE: 3 views of the ankle were acquired. COMPARISON: None. FINDINGS: Bones: There is a trimalleolar fracture dislocation at the right ankle, with anterior dislocation of the tibial plafond across the talar dome. An associated posterior malleolar fracture is present, displaced dorsally. The base of the medial malleolus is fractured and mildly displaced. A diagonal fracture extends through the distal fibular metadiaphyseal junction. Ankle mortise is therefore significantly malaligned. No suspicious bony lesions. Soft tissues: No tibiotalar joint effusion. Achilles tendon appears normal. IMPRESSION: Trimalleolar fracture dislocation as discussed. Orthopedic surgical consultation is anticipated. Dictated by: Michoacano Perez M.D. on 05/25/2019 at 15:52 Approved by: Michoacano Perez M.D. on 05/25/2019 at 15:58 XR-ankle R, 1st reduction: Radiologist's impression: Jane Cardenas 73 F 1945 [place] [address] XRay Report Signed Patient: Jane Cardenas CMR#: [id number] : 1945cct:[id number] Age/Sex: 73 / FDate of Service: 05/25/19 Loc: ED Accession Number: [id number] Procedure: XR ankle RT 2V Ordering Provider: Keaton Deluca PROCEDURE: XR ANKLE RT 2V INDICATIONS: post reduction TECHNIQUE: 2 views of the ankle were acquired. COMPARISON: [facility], , XR ANKLE RT MIN 3V, 05/25/2019, 15:36. FINDINGS: Bones: Trimalleolar ankle fracture dislocation with persistent tibiotalar dislocation post attempt at reduction. There is slightly decreased impaction of the distal tibia on the talar dome. Soft tissues: Splint material surrounds the ankle. No radiodense foreign body is within the soft tissue. IMPRESSION: Trimalleolar fracture dislocation without successful reduction Dictated by: Radha Moreno M.D. on 05/25/2019 at 18:42 Approved by: Radha Moreno M.D. on 05/25/2019 at 18:45 XR-R ankle post 2nd reduction: Radiologist's impression: [place] [id number] [place] [id number] XRay Report Signed Patient: Jane Cardenas [facility]#: [id number] : 6Acct:[id number] Age/Sex: 73 / FDate of Service: 05/25/19 Loc: ED Accession Number: [id number] Procedure: XR ankle RT 2V Ordering Provider: Keaton Deluca PROCEDURE: XR ANKLE RT 2V INDICATIONS: POST REDUCTION TECHNIQUE: 2 views of the ankle were acquired. COMPARISON: [facility], , XR ANKLE RT 2V, 05/25/2019, 17:52. FINDINGS: Bones: There has been improvement in alignment of the tibiotalar articulation with moderate persistent anterior joint space widening, slight anterior tibial subluxation and posterior impaction of the tibia on the talar dome. The at the transverse alignment remains nearly normal. Mild displacement of the medial malleolar fragment. Soft tissues: Splint material present. IMPRESSION: Improved, but not quite anatomic alignment post reduction of trimalleolar fracture dislocation. Dictated by: Radha Moreno M.D. on 05/25/2019 at 19:34 Approved by: Radha Moreno M.D. on 05/25/2019 at 19:35 MDM Narrative Medical decision making narrative: This is a 73-year-old female came by ambulance after a mechanical fall who sustained trimalleolar fracture with anterior dislocation of the tibia platform across the talar dome on her right ankle. She denied pain on hips, knee, foot. She denies hitting her head from this fall. Her neurovascular exam was normal and she was able to move her toes. Dr. Acuna was consulted over the phone. He suggested a posterior and stirrup lower leg splint with non weight-bearing and to follow up with the [facility] in a couple of days. Dr. Acuna did not think the patient is to be admitted for surgery tonight. The patient was medicated with IV fentanyl 25 mcg x 3 doses prior closed reductions. Two unsuccessful attempts were made by myself. Dr. Rubio had improved closed reduction on R anterior disloation of the tibial platfond across the talar dome. The patient tolerated the procedure well. Post reduction x-ray was taken which showed improved but not required anatomic alignment post reduction of trimalleolar fracture dislocation. The patient had provided information of [facility] and advised to follow up in a couple of days. The patient and spouse are well known by Dr. Noemi Aguilar and are planning to call the clinic tomorrow. I emphasized on nonweightbearing and patient has all wheelchair at home. The patient's declined using crutches since she already has problem with the balance. The return precautions were discussed with the patient and , advised RICE therapy to decrease swelling and pain. All questions were answered and the patient and agreed with treatment plan. Discharge Plan Departure Patient Disposition: Home Clinical Impression: Fracture of distal end of right tibia Qualifiers: Encounter type: initial encounter Fracture type: closed Fracture morphology: unspecified fracture morphology Qualified Code(s): S82.301A - Unspecified fracture of lower end of right tibia, initial encounter for closed fracture Fracture of distal end of right fibula Qualifiers: Encounter type: initial encounter Fracture type: closed Fracture morphology: unspecified fracture morphology Qualified Code(s): S82.831A - Other fracture of upper and lower end of right fibula, initial encounter for closed fracture Discharge Date/Time: 05/25/19 19:53 Interventions: ED Discharge Assessment Last Done: 05/25/19 19:53 Instructions: DI for Ankle Fracture Activity Restrictions/Additional Instructions: You have been diagnosed with [ R ankle fracture. Your x-ray test shows Trimalleolar fracture dislocation without joint effusion or Achilles tendon injury]. What to do: *Take your medications as directed. You could use [id number] Tylenol as needed for pain. Please see precaution we need take [place]. This medication w ill cause drowsiness and constipation. Please use [id number] stool softener as needed. Please use RICE therapy as we discussed and use ice pack next couple of days and elevated affected leg above chest level to decrease swelling and pain. Please to not get your splint wet and do not bear weight at all times on injured leg. * please give a call to [facility] to follow up with Dr. Aguilar as you requested. Follow up with your primary care provider in 2-3 days, call for an appointment. Let them know you were seen in the ED and that we asked you to be seen in follow up. *Return to ED if you have any new, worsening, or concerning symptoms, such as [severe pain, swelling, pale and cool toes, tingling numbness to toes, chest pain, breathing difficulty, unable to tolerate fluids, or any acute concerns]. Prescriptions: New hydrocodone-acetaminophen [[place]] 5-325 mg tablet 1 tab PO Q6H PRN (Reason: pain) Qty: 10 RF: 0 No Action denosumab [[place]] 60 mg/mL syringe 60 mg SUBCUT [id number] RF: 0 losartan 50 mg tablet 50 mg PO DAILY RF: 0 levothyroxine 88 mcg tablet 88 mcg PO QPM RF: 0 Referrals: [facility] [Provider Group] Noemi Aguilar MD [Physician] - <Freddy Rubio DO - Last Filed: 05/26/19 19:24> [facility] Attestation: I was available for consultation during this patient's emergency department encounter
[2019-05-25] MEDS: fentaNYL 100 MCG/2 ML INJ 25 MCG IV ×3 (17:39→19:00)
--- NOTE | 2019-05-25 17:49 | DI.RAD.S_ITS ---
PROCEDURE: XR ANKLE RT 2V INDICATIONS: post reduction TECHNIQUE: 2 views of the ankle were acquired. COMPARISON: [facility], , XR ANKLE RT MIN 3V, 05/25/2019, 15:36. FINDINGS: Bones: Trimalleolar ankle fracture dislocation with persistent tibiotalar dislocation post attempt at reduction. There is slightly decreased impaction of the distal tibia on the talar dome. Soft tissues: Splint material surrounds the ankle. No radiodense foreign body is within the soft tissue. IMPRESSION: Trimalleolar fracture dislocation without successful reduction Dictated by: Radha Moreno M.D. on 05/25/2019 at 18:42 Approved by: Radha Moreno M.D. on 05/25/2019 at 18:45
[2019-05-25 19:53] VITALS: BP 160/78; PULSE 66; RESP 20; O2SAT 98
== END 2019-05-25 19:53 | disposition home or self-care (01) ==
PROVIDERS: Emergency Provider Nurse Practitioner Family
DX: S82.851A Displaced trimalleolar fracture of right lower leg, initial encounter for closed fracture (principal); S82.831A Other fracture of upper and lower end of right fibula, initial encounter for closed fracture; W19.XXXA Unspecified fall, initial encounter
CPT/HCPCS: 27818; 73600; 73610; 96374; 96376; 99283; 99284; J3010

== ENCOUNTER → 2019-05-27 10:20 | Outpatient (CLI) | payer MEDICARE, OTHER, SELFPAY ==
--- NOTE | 2019-05-27 | DI.CT.S_ITS ---
PROCEDURE: CT LE RT WO CON INDICATIONS: RIGHT ANKLE FRACTURE TECHNIQUE: Noncontrast 1-1.5 mm axial sections acquired from above the tibiotalar joint to the bottom of the calcaneus, with coronal and sagittal reformats. COMPARISON: [facility], CR, XR ANKLE RT 2V, 05/25/2019, 18:53. FINDINGS: Image quality: Excellent. Bones: Again noted is acute comminuted fracture involving distal fibular shaft and lateral malleolus with fracture line extending to lateral ankle mortise. Posterior lateral displacement of distal lateral malleolus is seen with a gap measures 8 mm in AP dimension and 5 mm in transverse dimension. There is also slightly comminuted fracture involving medial malleolus with minimal posterior medial displacement of the fractured fragment and a gap measures up to 2 mm in width. Acute slightly comminuted fracture involving posterior malleolus is also seen with posterior displacement of fractured fragments measures up to 6 mm in distance. No other fracture or dislocation is seen. No suspicious intraosseous lesion. Soft tissues: There is soft tissue swelling around ankle joint. Moderate amount of joint effusion is also seen. Extensor, flexor, and peroneal tendons are grossly intact. Achilles tendon is intact. IMPRESSION: 1. Acute comminuted and displaced trimalleolar fracture as described in detail above. Widening of lateral ankle mortise. No dislocation. 2. Diffuse ankle soft tissue swelling with a moderate amount of joint effusion. Ankle tendons are grossly intact. Dictated by: Brandon Vásquez M.D. on 05/27/2019 at 11:23 Approved by: Brandon Vásquez M.D. on 05/27/2019 at 11:27
== END ==
PROVIDERS: PCP Internal Medicine; Visit Provider Orthopaedic Surgery Foot and Ankle Surgery
DX: S82.851A Displaced trimalleolar fracture of right lower leg, initial encounter for closed fracture (principal); M25.471 Effusion, right ankle
CPT/HCPCS: 73700

== ENCOUNTER 2019-06-01 08:20 | Inpatient (IN) | payer MEDICARE, OTHER, SELFPAY ==
[2019-06-01] VITALS (15 sets, daily range): BP systolic 110–178; BP diastolic 45–98; PULSE 69–106; RESP 12–18; TEMP 36.2–36.9; O2SAT 96–100
--- NOTE | 2019-06-01 | DI.RAD.S_ITS ---
PROCEDURE: XR ANKLE RT MIN 3V INDICATIONS: ANKLE ORIF TECHNIQUE: 4 views of the ankle were acquired. COMPARISON: [facility], CR, XR ANKLE RT 2V, 05/25/2019, 18:53. FINDINGS: 4 spot fluoroscopic intraoperative views demonstrating plate and screw fixation of the lateral and medial malleolus. There is also screw fixation of the distal tibiofibular syndesmosis. There is screw fixation of the posterior malleolus. Expected intraoperative alignment. Dictated by: Marshall Romero M.D. on 06/01/2019 at 15:30 Approved by: Marshall Romero M.D. on 06/01/2019 at 15:31
--- NOTE | 2019-06-01 09:38 | PM.PREOP ---
Pre-operative Note Interval Note History & Physical reviewed/Exam performed by Physician: Yes Changes to H&P: No
--- NOTE | 2019-06-01 09:52 | P.OP_ITS ---
Operative Date/Time/Diagnoses Date of procedure: 06/01/19 Time of procedure: 10:30 Pre-op diagnosis: Right closed trimalleolar ankle fracture S82. 851 generalized osteoporosis M81.8 Alzheimer's Post-op diagnosis: same Procedure & Clinicians Procedure: Open reduction internal fixation trimalleolar ankle fracture, right CPT code 89387 Same procedure as scheduled: Yes Indications: Patient is a 73-year-old female with a history of Alzheimer's and osteoporosis that presents with a right ankle fracture. She has a comminuted displaced closed right trimalleolar ankle fracture. She has been indicated for open reduction internal fixation of the displaced fracture. The risks benefits and alternatives to the surgery were discussed with the patient in detail and include but are not limited to infection, nonunion, malunion, posttraumatic arthritis, persistent pain, wound healing problems, amputation, DVT, pulmonary embolism, stroke, paralysis, , symptomatic hardware. Patient has elected to proceed consent was signed in the office by the patient and the patient's who is her power of mailing machine assistant. Surgeon: Alysha Seay Click Yes if Unassisted: Yes Anesthesia Type: General and Peripheral nerve block Operative Notes Findings: Unstable comminuted displaced trimalleolar ankle fracture with posterolateral posterior medial comminution. There is an incarcerated piece of the lateral tibial plafond with in the syndesmosis this was removed. The medial malleolus was stabilized with a Arthrex hook plate for the small osteoporotic fragment. Additionally a 1/3 tubular plate was used as a antiglide or buttress plate on the posterior medial tibia. An additional anterior to posterior cannulated screw was used for the posterior lateral aspect of the posterior malleolus fragment. And due to the poor bone quality a anatomic a lateral locking plate from the Arthrex set was used on the fibula. Multiple syndesmotic screws were utilized for additional bone fixation due to the patient's osteoporotic bone. Closure Type: primary Specimen(s): none sent Applied: implant(s) (Arthrex locking lateral fibular plate. Arthrex medial hook plate. Arthrex 4 hole 1/3 tubular plate. 4.0 cannulated screws) Estimated Blood Loss (mL): 20 Blood products transfused: none Tourniquet time (min): 130 Procedure in detail: In the preoperative holding area, the appropriate limb and sites were marked, consent was again reviewed with the patient and all questions answered. The patient was brought to the operating room, placed on the operating table and given anesthetic. A peripheral nerve block was placed by the anesthesia team for postoperative pain control. Following successful levels of anesthesia, the patient was appropriately padded, position secured to the table. Patient was positioned supine with an thigh bump. An SCD was placed on the contralateral leg. All bony prominences were well padded. A well-padded thigh tourniquet was placed. The surgical leg was then prepped and draped in the usual sterile fashion. A formal time-out procedure was completed confirming the patient, site and side of surgery and administration of appropriate preoperative antibiotics. All were in agreement. An Esmarch bandage was utilized to exsanguinate the limb and the tourniquet was raised on the thigh to 250 mmHg. It stayed elevated for 130 minutes. Lateral incision was made just posterior to the fibula. Dissection was carried through the skin and subcutaneous tissue to the level of the fibula. The fracture was exposed and cleaned of debris. The fracture was distracted and the incarcerated plafond piece in the syndesmosis was removed. Copious fracture hematoma was evacuated. The fracture line through the fibula was used to access the syndesmosis and this was cleaned and reduced. Once the posterior malleolus was adequately stabilized, then the fibula Fracture was reduced, restoring length rotation and anatomic alignment. The distal fragment had extremely osteoporotic bone with the clamps crushing right through it there for an anatomic locking plate was selected. Locking screws were placed distally and nonlocking screws proximally. Medial malleolus fixation: Attention was then turned to the medial side of the joint. A posterior medial approach to the medial malleolus was performed this was over the posterior tibialis tendon and extended distally. Posterior tibialis tendon sheath was opened and the tendon was retracted anteriorly to expose the posterior medial extension of the posterior malleolus fracture. The periosteum was reflected at the fracture site and this was cleaned and reduced with a pointed reduction clamp. Working back and forth between the posterior lateral and posterior medial incisions the posterior malleolus was reduced and pinned. An ADP screw was placed laterally and a 4 hole 1/3 tubular plate was used as a buttress plate posterior medially achieving satisfactory alignment of the posterior malleolus. For the additional anterior medial malleolus distal fragment fixation was initially attempted with a cannulated screw however this did not hold due to the poor bone quality so was removed and exchanged for a medial hook plate which achieved excellent fixation. The plate was impacted with the tines through the medial malleolus followed by the home run screw and a compression screw and final shaft screws. The proximal screw did not get good bite with a cortical screw was exposed so was exchanged for a locking screw. alignment checked on x-ray to confirm adequate position. Once this was completed attention was returned to the fibula and fibular fixation was completed with the anatomic lateral plate with locking screws distally and cortical screws proximally. In addition 3 transsyndesmotic screws were added for additional cortical fixation in this osteoporotic bone. Stability was confirmed under fluoro. The syndesmosis was stressed and was stable. The wounds were irrigated. We were quite satisfied with result clinically and radiographically. The tourniquet was released, and hemostasis achieved. The deep tissue was closed with 2 O Vicryl. The posterior tibialis tendon sheath was reapproximated with 2 Vicryl. Care was taken to make sure that the medial plate was away from the posterior tendon course. Additionally no screws were placed in the distal aspect of the plate to avoid prominence. Subcutaneous tissue was closed with 4 0 Monocryl in the skin with 3 O and 2 0 nylon. A sterile bulky dressing-Sanders dressing and Usplint were applied. All counts were correct. The patient was then awoken and transported to recovery room in good condition. There no known immediate complications from this procedure. Complications: none Condition: stable Disposition: Acute Care Plan for aftercare: Patient will be nonweightbearing (TTWB for balance) on the right lower extremity. Admitted to acute care unit. She will work with physical therapy. Plan for longterm discharge. Lovenox for DVT prophy and scds while in hospital then at discharge switch to Aspirin 325 mg daily for DVT prophylaxis, and SCDs.
--- NOTE | 2019-06-01 10:15 | SUR.PREOP ---
Block start time [0942] . Monitoring initiated and maintained throughout procedure. Oxygen and medications given per anesthesiologist instructions. Patient remained stable throughout procedure, no adverse reactions noted. Block end time [1000].
[2019-06-01] MEDS: CEFAZOLIN 2 GM/100 ML FROZ.PIGGY IV ×2 (10:19→19:24)
--- NOTE | 2019-06-01 10:29 | CM.DPNOTE ---
DCP Planning: JANNET received a call from Wilman in the [facility] [phone] stating that pt is having ankle day surgery today with anticipation of discharging from surgery and not being admitted to the hospital and that spouse Fabricio is stating that their plan is to go to [facility] after surgery but that [facility] [place] needs pwk. JANNET called Orly at [facility] and confirmed that while she was off work yesterday, spouse had called to inquire about placement for rehab after surgery and was under the impression that pt would be accepted under insurance. Orly confirms that pt would need a [facility] qualifying stay for rehab or would be private pay as they are also not aware of pt having a recent hospitalization to meet medicare requirement of 3 midnights. JANNET updated Orly that unless complications arise, plan was not to admit pt to [facility]. JANNET called Wilman in the [facility] with update and provided SW number for spouse to call to further discuss. Spouse Fabricio called and states that he understands that Dr. Seay plans to admit pt for 3 nights after surgery so that rehab can be covered. JANNET briefly discussed Medicare criteria that pt would need to meet to be Inpt Status and 3 midnights and discussed that if pt is admitted to [facility] that DCP would follow for discharge planning needs. Spouse very appreciative and strongly feels that pt will be admitted. JANNET called Wilman in [facility] to update her on spouse's understanding and Wilman states she will update Dr. Seay after surgery as pt looks to still only be scheduled for day surgery. MEI Valerio
--- NOTE | 2019-06-01 11:06 | SUR.OPER ---
Supine on padded OR bed, head on pillow, arms secured on padded arm boards at <90 degrees abduction, legs uncrossed, safety belt at thigh, tape over blanket over lower legs.
--- NOTE | 2019-06-01 11:57 | PM.PROC.1 ---
Procedures Date/Time Date of procedure: 06/01/19 Time of procedure: 09:35 General Procedure description: Ultrasound guided popliteal sciatic and adductor canal saphenous nerve blocks for post op pain control after right ankle trimalleolar ankle ORIF by Dr. Seay. Risk and benefits of procedure discussed with patient. ASA monitoring applied to patient. Oxygen given via nasal cannula. 50 mcg fentanyl given for procedural sedation. Skin site was prepped with chlorhexidine and allowed to fully dry. Sterile gloves, mask, hat and probe cover were used to maintain sterility. 1% lidocaine and 30ga needle was used to make a small skin wheal at needle insertion site. Under ultrasound guidance, a 21ga 100mm Pajunk needle was directed near the division of the sciatic nerve into tibial and peroneal nerve in the popliteal fossa (lateral approach). Patient reported no parasthesias. After negative aspiration, 10 mL 0.5% ropivicaine mixed with 10ml of 1% lidocaine and 5mg dexamethasone were injected around sciatic nerve. For adductor canal block, 10 mL 0.5% ropivicaine mixed with 10ml of 1% lidocaine and 5mg dexamethasone were injected under US guidance in the adductor canal near the femoral artery. Aspiration negative, no parasthesias reported. Patient tolerated procedure well. Sciatic nerve upper pic, adductor canal lower pic
--- NOTE | 2019-06-01 12:02 | P.PCN_ITS ---
Procedures Date/Time Date of procedure: 06/01/19 Time of procedure: 09:35 General Procedure description: Ultrasound guided popliteal sciatic and adductor canal saphenous nerve blocks for post op pain control after right ankle trimalleolar ankle ORIF by Dr. Seay. Risk and benefits of procedure discussed with patient. ASA monitoring applied to patient. Oxygen given via nasal cannula. 50 mcg fentanyl given for procedural sedation. Skin site was prepped with chlorhexidine and allowed to fully dry. Sterile gloves, mask, hat and probe co emelina were used to maintain sterility. 1% lidocaine and 30ga needle was used to make a small skin wheal at needle insertion site. Under ultrasound guidance, a 21ga 100mm Pajunk needle was directed near the division of the sciatic nerve into tibial and peroneal nerve in the popliteal fossa (lateral approach). Patient reported no parasthesias. After negative aspiration, 10 mL 0.5% ropivicaine mixed with 10ml of 1% lidocaine and 5mg dexamethasone were injected around sciatic nerve. For adductor canal block, 10 mL 0.5% ropivicaine mixed with 10ml of 1% lidocaine and 5mg dexamethasone were injected under US guidance in the adductor canal near the femoral artery. Aspiration negative, no parasthesias reported. Patient tolerated procedure well. Sciatic nerve upper pic, adductor canal lower pic
[2019-06-01] MEDS: LACTATED RINGERS 1,000 ML 42 ML IV (13:12)
--- NOTE | 2019-06-01 14:44 | SUR.PHASEI ---
Leg elevated on pillows, block effective so pt is comfortable. eating applesauce awaiting report to conclude so pt can go upstairs.
--- NOTE | 2019-06-01 15:34 | SUR.PHASEI ---
Delivered pt to room 226 and left under the care of Cathy SOLIS. Pt had gold metal ring on finger. Pt left in stable condition.
--- NOTE | 2019-06-01 16:14 | PT.IPTN ---
Current Diagnoses Other osteoporosis without current pathological fracture (06/01/19) Displaced trimalleolar fracture of right lower leg, initial encounter for closed fracture (06/01/19) Surgery Performed Operation Date: 06/01/19 10:30 Actual Procedures p ORIF trimalleolar ankle fracture(Right) - Alysha Seay MD Physical Therapy Treatment Note M3 PT-IP Subjective Start: 06/01/19 16:13 Freq: NEEDED Status: Active Protocol: Document 06/01/19 16:13 AB (Rec: 06/01/19 16:14 AB [id number]) Subjective Physical Therapy Visit Type Notes checked with nursing and stated that pt just came up to the floor a few minutes ago. stated that pt had a nerve block and unable to feel and move her LE and will not be ready for PT at this time. will f/u.
[2019-06-01] MEDS: LACTATED RINGERS 1,000 ML 75 ML IV (16:20)
[2019-06-01 18:22] LABS: Blood Urea Nitrogen 14 mg/dL (7-17); Calcium 8.7 mg/dL (8.4-10.2); Carbon Dioxide 27 mmol/L (22-32); Chloride 101 mmol/L (98-107); Estimated Glomerular Filt Rate > 60.0 mL/min (>60); Glucose 176 mg/dL (80-110); HEMOLYSIS < 15 (0-50); Potassium 3.9 mmol/L (3.4-5.1); Sodium 137 mmol/L (137-145)
[2019-06-01] MEDS: PROLIA 60 MG 1 EACH SUBCUT (19:25)
[2019-06-01] MEDS: DOCUSATE 100 MG CAPSULE PO (22:10)
[2019-06-01] MEDS: ACETAMINOPHEN 325 MG TABLET 975 MG PO (22:10)
[2019-06-01] MEDS: LEVOTHYROXINE 88 MCG TABLET PO (22:11)
[2019-06-02] VITALS (7 sets, daily range): BP systolic 112–179; BP diastolic 79–117; PULSE 74–97; RESP 16–18; TEMP 36.4–37.4; O2SAT 92–99
[2019-06-02] MEDS: CEFAZOLIN 2 GM/100 ML FROZ.PIGGY IV (03:27)
--- NOTE | 2019-06-02 04:34 | PC.NURSE ---
Pt has been awake all night long and continues to pull at lines including IV and Baxter. Has been reminded multiple times about leaving lines alone. Continues to pull at lines and I have re-dressed IV site 3x. Pt's VSS, CMS intact, SCD's on left foot. Pt denies pain or nausea.
[2019-06-02 05:30] LABS: Hematocrit 34.6 % (36-46); Hemoglobin 11.7 g/dL (12.0-16.0); Mean Corpuscular HGB Conc 33.8 % (30-36); Mean Corpuscular Hemoglobin 30.9 PG (26-34); Mean Corpuscular Volume 91.5 fL (80-100); Platelet Count 268 X10^3/uL (150-400); Red Blood Cell Count 3.78 X10^6/uL (4.0-5.2); Red Cell Distribution Width 14.4 % (11.6-14.8); White Blood Cell Count 19.4 X10^3/uL (4.5-11.0)
[2019-06-02] MEDS: OXYCODONE IR 5 MG TABLET 2.5 MG PO (05:49)
--- NOTE | 2019-06-02 07:36 | P.PN_ITS ---
Subjective Date Patient Seen: 06/02/19 Time Patient Seen: 07:34 Interval history: Hospital day 2, postop day 1 following right ankle trimalleolar fracture ORIF by Dr. Seay. Patient does have Alzheimer's. She apparently has been awake all night according to the nurse. Has been planed out her IV and Baxter. She has not had physical therapy yet. She is toe-touch weight-bearing to the right leg. Exam Vital Signs (past 8 hours): - 06/02/19 04:28 Temperature 98.8 F Pulse Rate 91 H Respiratory Rate 17 Blood Pressure 149/89 H Pulse Oximetry 99 Oxygen Delivery Method Room Air Oxygen Flow Rate 1 Narrative Exam Narrative: Patient is alert and responsive in no acute distress. Right leg. Bulky lower leg splint intact without drainage. Good blanching and sensation to toes. Objective Labs Result Diagrams: 06/02/19 04:49 06/01/19 16:19 Labs: Laboratory Results - last 24 hr 06/01/19 06/02/19 16:19 04:49 WBC 19.4 H RBC 3.78 L Hgb 11.7 L Hct 34.6 L MCV 91.5 MCH 30.9 MCHC 33.8 RDW 14.4 Plt Count 268 Sodium 137 Potassium 3.9 Chloride 101 Carbon Dioxide 27 BUN 14 Creatinine 0.70 Estimated GFR > 60.0 BUN/Creatinine Ratio 20.0 Glucose 176 H Calcium 8.7 Assessment & Plan Post-op Postoperative Procedures Operation Date: 06/01/19 10:30 Actual Procedures Side Surgeon p ORIF trimalleolar ankle fracture Right Alysha Seay MD Plan: Dr. Seay is recommended SNF for ongoing care is patient is toe-touch weight-bearing right leg and will need any assistance. Wait to see what physical therapy has to say. audio production manager will evaluate for discharge planning. Quality VTE Deep Vein Thrombosis/Pulmonary Embolism Present on Admission: No
[2019-06-02] MEDS: ENOXAPARIN 40 MG/0.4 ML SYRINGE SUBCUT (10:47)
[2019-06-02] MEDS: LOSARTAN 50 MG TABLET PO (10:47)
[2019-06-02] MEDS: KETOROLAC 15 MG/ML VIAL IV ×2 (10:48→16:17)
[2019-06-02] MEDS: DOCUSATE 100 MG CAPSULE PO ×2 (10:48→20:49)
[2019-06-02] MEDS: ACETAMINOPHEN 325 MG TABLET 975 MG PO ×2 (10:48→16:17)
--- NOTE | 2019-06-02 11:38 | PT.IIE ---
Current Diagnoses Other osteoporosis without current pathological fracture (06/01/19) Displaced trimalleolar fracture of right lower leg, initial encounter for closed fracture (06/01/19) Surgery Performed Operation Date: 06/01/19 10:30 Actual Procedures p ORIF trimalleolar ankle fracture(Right) - Alysha Seay MD Surgical History (Last Updated 05/25/19 @ 17:27 by ALEX Curry) History of thyroidectomy (Acute) Medical History (Last Updated 05/28/19 @ 11:18 by Akosua Luna RN) Alzheimer disease (Acute) HTN (hypertension) (Acute) Hypothyroidism (Acute) Left wrist fracture (Acute ~10/2014) Non-healing wound of lower extremity (Acute ~2017) Osteoporosis (Acute) Parathyroid adenoma (Acute ~2012) Recurrent UTI (Acute) Right wrist fracture (Acute ~2006) Physical Therapy Inpatient Evaluation/Re-Eval M1 PT/OT-IP Prior Functional Status Start: 06/01/19 16:13 Freq: NEEDED Status: Active Protocol: Document 06/02/19 09:20 (Rec: 06/02/19 11:38 [id number]) Medical Review Prior Functional Status Medical History Reviewed Yes Diet/Fluid Consistency Regular Communication Pt has advanced Alzheimer's. Only able to follow 1 step command. Pt's Fabricio is her primary CG Mobility and Gait Fabricio stated pt needed his supervision at all times due to her Alzheimer's, but pt did not need AD for home and community mobility. He also stated pt's gait speed has been declining. Activities of Daily Living and IADL's pt needed supervision from her at all times for ADLs and total assistance for IADLs. Pt usually showers in a wheelchair. Social History Household Members spouse Living Arrangements House Number of Floors (Floors) One Floor Number of Stairs To Enter/Railing? 5 JULIA with L rails Home Environment High Toilet Walk in Shower Home Equipment Straight Cane Manual Wheelchair Bedside Commode Shower Seat with Backrest Hand Held Shower Grab Bars Near Toilet Grab Bars In Shower Employment Status Retired Additional Social History Comment Pt lives with her Fabricio who is her primary CG. He states he considers himself as a level2 CG for pt's Alzheimer's disease. He recommends that pt could only follow 1 step command with soft spoken tone, along with repetitive training for participating rehab. He expects pt to be transferred to [facility] for rehab after. M2 PT-IP Current Condition Start: 06/01/19 16:13 Freq: NEEDED Status: Active Protocol: Document 06/02/19 09:20 HH (Rec: 06/02/19 11:38 [id number]) Physical Therapy Current Condition Current Condition Evaluation Date 06/02/19 Treatment Diagnosis ORIF at R ankle s/p fall, difficulty in walking, generalized weakness. Onset Date 06/01/19 Weight Bearing Status Weight Bearing Status Non-Weight Bearing Allowed Weight Bearing Amount (enter % Per surgeon note, NWB for RLE or #) (%) and TTWB only for balance. M3 PT-IP Subjective Start: 06/01/19 16:13 Freq: NEEDED Status: Active Protocol: Document 06/02/19 09:20 HH (Rec: 06/02/19 11:38 [id number]) Subjective Physical Therapy Visit Type Type Initial Evaluation Visit Start Time 09:20 Visit Stop Time 10:00 Total Visit Minutes 40 Notes Pt's Fabricio at bedside . AUTOMOBILE INSURANCE CLAIM EXAMINER assisted PT eval. Number of INJECTION MOLD TECHNICIAN Visits 0 Physical Therapy Visit Comments Patient Comments Pt agreeable to mobilize with PT Patient Goals Fabricio expects pt to be transferred to [facility] for rehab after. Therapy Pain Assessment Pain When Pain Assessed During Mobility Pain Present Pain Present Pain Reported Location Right Leg Intensity 5 Scale Used Romero-Milligan (Faces) Description Acute Pain Behaviors Facial Grimacing Pain Management Techniques Timing of Activity with Medications M4 PT-IP Mobility and Gait Start: 06/01/19 16:13 Freq: NEEDED Status: Active Protocol: Document 06/02/19 09:20 HH (Rec: 06/02/19 11:38 [id number]) PT-Bed Mobility Assessment Rolling Type of Rolling Roll to Left Level of Assist Moderate Assistance 1 Person Assistance Supine to Sit Supine to Sit Moderate Assistance 1 Person Assistance Head of Bed Elevated Bedrails Scooting Scooting to Edge of Bed Maximum Assistance PT-Transfer Assessment Sit to and From Stand Sit to and from Stand Maximum Assistance 2 Person Assistance Equipment Transfer Assistive Device None Gait Belt Front Wheeled Walker Orthotic/Prosthetic Devices or Brace: Yes Transfers Transfer Destination Bed Chair Transfer Technique Squat Pivot Transfer Ability Level of Assist Maximum Assistance 2 Person Assistance Use of Upper Extremities Comments Mobility Comments Pt was in bed upon assessment. She is alert and able to follow 1 step command, but was unable to answer questions regarding home situation, nor the date and time. Pt sat up at the EOB with 2PA. Required assistance to unweight R LE for pivoting. She then attempted stand pivot transfer to chair but was unable to proper her LLE. She then used a squat pivot transfer with PT and AUT[employer]OBI[employer] INSURANCE CLAIM EXAMINER without FWW successfully. She was able to pivot her L foot by guilding her pelvis. However, Pt was very easily distracted and tended to move her catheter around. She needed constant reminders for her WB status, sequencing and purpose of her current tasks. Gait Assessment Comments Gait Comments unable to perform Stair Climbing Assessment Comments Stair Climbing Comments unable to perform PT-Balance Assessment Sitting Balance and Reactions Static Sitting Balance Ability Normal Dynamic Sitting Balance Ability Normal Standing Balance and Reactions Static Standing Balance Ability Fair Dynamic Standing Balance Ability Fair Device Used FWW M5 PT-IP Objective Assessments Start: 06/01/19 16:13 Freq: NEEDED Status: Active Protocol: Document 06/02/19 09:20 (Rec: 06/02/19 11:38 [id number]) Orientation Orientation/Cognition Level of Alertness Alert Orientation Name Language Function Ability No Deficits Noted Safety Awareness Decreased Safety Awareness Memory Description Short Term Impaired Maintenance Representative Impaired Comments Pt has advanced Alzheimer's. Only able to follow 1 step command. Pt's Fabricio is her primary CG Gross Range of Motion Upper Extremity ROM Assessment Within Functional Limits Lower Extremity ROM Assessment Right Impaired Strength Upper Extremity Strength Assessment Within Functional Limits Lower Extremity Strength Assessment Within Functional Limits Sensation Assessment Sensation Gross Sensation WNL Muscle Tone Muscle Tone WNL Yes M6 PT-IP Treatment Start: 06/01/19 16:13 Freq: NEEDED Status: Active Protocol: Document 06/02/19 09:20 (Rec: 06/02/19 11:38 [id number]) Physical Therapy Treatment Education Education Provided Precautions Weight Bearing Status Post-Op Packet Safety Other Treatments Other Treatment Performed education with pt's M7 PT-IP Assessment and Plan Start: 06/01/19 16:13 Freq: NEEDED Status: Active Protocol: Document 06/02/19 09:20 (Rec: 06/02/19 11:38 [id number]) PT Summary Assessment and Plan Potential Rehabilitation Potential Excellent Status of Condition at Evaluation Stable Summary Impairments Pain ROM Strength Balance Cognition Bed Mobility Transfers Gait Activity Tolerance Assessment Summary Pt is a high complexity due to her NWB of ORIF at R ankle and advanced Alzheimer's. Upon assessment, Pt was only able to transfer to chair from bed with squat pivot max A x 2 who required constant reminders for her WB status, sequencing and purpose of her current tasks. Pt tends to perform better with 1 step simple command and demonstration, soft spoken tone and quiet environment. Even though with pt;s advanced Alzheimer's disease, pt will still benefit from skilled therapy for repetitive training in order to maximize her functional mobility. She will be a good candidate for SNF as well once she is medically stable. Goals Bed Mobility Goal Minimal Assistance Transfer Goal Minimal Assistance Front Wheeled Walker Gait Goal Minimal Assistance Front Wheel Walker Gait Distance 10 Other Goals BSC transfer Days to Meet Goals 10 Frequency of Treatment Frequency Of Treatment Twice a Day Treatment Plan Physical Therapy Treatment Plan Bed Mobility Training Transfer Training Gait Training Therapeutic Exercise Balance Retraining Post Op Education Discharge Planning Hot or Cold Pack Neuromuscular Re-ed Other Recommendations and Next Treatment bed mob and transfer as juve Focus squat pivot transfer at this point. step simple command and demonstration, soft spoken tone and quite environment Recommendations To Nursing Amount of Assist Needed 2 Person Assist PT/OT Assist Only Mechanical Lift Discharge Recommendations PT Discharge Recommendations SNF Rehab
--- NOTE | 2019-06-02 12:30 | CM.DANOTE ---
Patient is a 73 year old female who was admitted on 06/01/19 for Right Ankle Surgery. Pt has MCR and PRE DIM for insurance and her PCP is Dr. Skyler Fontana. EMR was reviewed. Per Ortho , pt with somewhat complex surgical procedure and recommending SNF at d/c due to nonweight baring and advanced dementia. Per RN, pt's first night admitted she had some sundowning and pulled on her lines and stayed awake most of the night. During the day pt has been calm and cooperative without any behaviors. Per PT, recommending SNF rehab before safe return home and OT eval pending. SW met bedside with pt and spouse/DPTATA Regalado ([phone]) and explained role and updated white board and pt not a good historian due to dementia and states she is in [place]. Spouse confirms that they live in [place] and pt has caregivers through both [facility] as well as [facility] and spouse himself participates in an Alzheimer/CG support group. Spouse feels they have been managing well at home with caregivers and feels that SNF needed prior to safe return home. Denies any hx of SNF previously. SNF Choice list provided and spouse states he previously toured and preference is [facility] and that he has already contacted them. Spouse agreeable to referral to [facility] and aware of the need for 3 night qualifying stay for Medicare to cover SNF. SW called Orly at [facility] with new referral and Orly aware of pt but still needing clinicals faxed. SW faxed facesheet, H&P and PT notes to review. Completed PASRR in anticipation of SNF at d/c. Plan: SW to follow closely for [facility] review for possible placement for likely d/c Friday if pt remains stable. MEI Valerio Discharge Planning/Care Management Advanced directive, confirm from FAMILY Start: 06/01/19 16:06 Freq: Q24H Status: Active Protocol: Document 06/01/19 16:06 AGW (Rec: 06/02/19 00:11 AGW [id number]) Advance Directive, confirm on record Time 17:00 Person contacted spouse Copy received No CM Discharge Assessment Start: 06/02/19 12:25 Freq: Status: Active Protocol: Document 06/02/19 12:25 BF (Rec: 06/02/19 12:29 [id number]) Discharge Planning Assessment Assigned Accounts Receivable Executive Shawnee HURLEY DPOA/Assigned Designee Name Spouse Fabricio Contact Information [phone] Advance Directives? Yes: DPOA for health care Advance Directives on File Yes History Provided By Significant Other Medical Record Has Patient been admitted in last 30 No days? Prior Living Arrangements House Household Members spouse other Comment Pt has director multimedia caregivers as well through [facility] and [facility] Type of transporation used prior to Relies on Others admit Comment Spouse provides transport Independent with ADL's No Is patient alert and oriented? No: Advanced dementia Needs Assistance With Meal Prep Managing Medications Home Chores / Shopping Caregiver for Another No Patient/Family Preference Detention Facility Barriers to Discharge No Discharge Plan Detention Facility Transportation Arrangement Facility to provide w/c van transport at d/c if pt accepted at SNF Referrals Initiated Detention If patient plan is SNF: Has PASSR been Yes completed? Medicare Choice List Provided Yes SNF/HH Preference [facility] Contact Name/Phone Orly Has Agency SNF been contacted Yes Whiteboard Updated in Patient Room with Yes name and ext. # of Accounts Receivable Executive Review Status In Process Please Provide Date Initial DC 06/02/19 Assessment Was Performed Next Review Type Continued Stay Review Pre-Anesthesia Assessment Start: 05/28/19 10:11 Freq: Status: Complete Protocol: Document 05/28/19 10:11 CAB (Rec: 05/28/19 11:13 CAB [id number]) Pre-Anesthesia Assessment PAC Comment Advanced-limited remaining long-term memory. Short-term memory, recall, linear reasoning and decision making are non-existent per PCP note 01/26/19 scanned to record Patient Information Reviewed Via Chart Review Comment Surgeon H&P not available at time of PAC assessment Primary Care Provider Leighann Rose Seen Specialist in Last 12 Months Yes Specialist Seen Emergency Orthopedist Comment PCP last visit 01/26/19 put in surgery folder for dos Primary Language Korean Rn Med Surg Required No Height 167.64 cm Weight 56.245 kg Body Mass Index (BMI) 20.0 Barriers to Learning Memory Comment Advanced Alzheimer's disease Anesthesia Review Requested No: Advanced Alzheimer's disease Hearing Instrument Specialist No Smoking Status Never smoker Substance Use Type does not use Pain Present Pain Reported Musculoskeletal Symptoms Difficulty Walking Joint Pain Joint Swelling Limited Range of Motion History of Falling (Recent or History of Yes ) Patient is completely paralyzed or No completely immobile Mental Status Forgets limitations Is patient on oxygen? No Does patient have SARAVIA/SOB No Hx Sleep Apnea No Currently Taking a Beta Solomon No Hx Chest Pain No Hx SOB No Hx Syncope or Dizziness No Anti-Coagulant Therapy No Has a Front Desk Team Member No Cardiac Testing No Hx Pacemaker/ICD No Pacemaker Rep Required? No Cardiac Clearance Received Not Applicable Urinary Catheter Present No Hx Urinary Self Catheterization No Diabetes No Patient No Lactating No Have you traveled outside the [facility] in the last 30 days? Marital Status Lives With spouse Support System Spouse Patient Discharge Plan Description Return Home Advance Directives? Yes: DPOA for health care
--- NOTE | 2019-06-02 14:44 | OT.IP.EVAL ---
Current Diagnoses Other osteoporosis without current pathological fracture (06/01/19) Displaced trimalleolar fracture of right lower leg, initial encounter for closed fracture (06/01/19) Surgery Performed Operation Date: 06/01/19 10:30 Actual Procedures p ORIF trimalleolar ankle fracture(Right) - Alysha Seay MD Past Medical History (Last Updated 05/28/19 @ 11:18 by Akosua Luna RN) Alzheimer disease (Acute) HTN (hypertension) (Acute) Hypothyroidism (Acute) Left wrist fracture (Acute ~10/2014) Non-healing wound of lower extremity (Acute ~2017) Osteoporosis (Acute) Parathyroid adenoma (Acute ~2012) Recurrent UTI (Acute) Right wrist fracture (Acute ~2006) Surgical History (Last Updated 05/25/19 @ 17:27 by ALEX Curry) History of thyroidectomy (Acute) Occupational Therapy Inpatient Evaluation/Re-Eval M1 PT/OT-IP Prior Functional Status Start: 06/01/19 16:13 Freq: NEEDED Status: Active Protocol: Document 06/02/19 14:44 PJM (Rec: 06/02/19 15:41 PJM [id number]) Medical Review Prior Functional Status Medical History Reviewed Yes Diet/Fluid Consistency Regular Communication Pt has advanced Alzheimer's. Able to follow 1 step commands. Pt's Fabricio is her primary CG. Mobility and Gait Fabricio stated pt needed his supervision at all times due to her Alzheimer's, but pt did not need AD for home and community mobility. He also stated pt's gait speed has been declining.They have a transport wheelchair. Activities of Daily Living and IADL's Per , pt able to feed self with intermittent verbal cues due to distractibility. Pt needed verbal cues for thoroughness with grooming tasks such as oral care. Pt needed mod assist with upper and lower body dressing to orient clothing and complete task. Pt incontinent of bowel and bladder and total assist with brief change in bathroom. Pt showered seated in nylon transport W/C with max assist from . does all IADLS. Pt had respite caregivers from [facility] 1 day/week for 4 hrs and in processing of setting up second half day. Social History Household Members spouse other Living Arrangements House Number of Floors (Floors) One Floor Number of Stairs To Enter/Railing? 5 with one rail Home Environment High Toilet Walk in Shower Home Equipment Shower Seat with Backrest Hand Held Shower Grab Bars Near Toilet Grab Bars In Shower Employment Status Retired Additional Social History Comment pt has transport wheelchair M2 OT-IP Current Condition Start: 06/02/19 15:22 Freq: Status: Active Protocol: Document 06/02/19 14:44 PJM (Rec: 06/02/19 15:41 PJM [email or web address]) Occupational Therapy Current Condition Current Condition Evaluation Date 06/02/19 Treatment Diagnosis decreased self care, mobility s/p R trimalleolar ankle fx s/ p ORIF Diagnosis Onset Date 06/01/19 Post Operative Precautions Other Precautions fall risk, cognitive deficits Weight Bearing Status Weight Bearing Status Touch Down Weight Bearing Allowed Weight Bearing Amount (enter % RLE or #) (%) M3 OT- IP Subjective and Pain Start: 06/02/19 15:22 Freq: Status: Active Protocol: Document 06/02/19 14:44 PJM (Rec: 06/02/19 15:41 PJ [id number]) OT- Subjective Occupational Therapy Visit Type Type Initial Evaluation Visit Start Time 14:24 Visit Stop Time 14:44 Total Visit Minutes 20 Notes here to provide information re: prior level of function. Occupational Therapy Visit Comments Patient Comments I don't always want to get dressed right away. Patient/Caregiver Goals pt unable to participate in goal setting due to confusion, would like pt to return home once able to transfer with less assist OT Pain Assessment Pain When Pain Assessed After Treatment Pain Present Pain Present Denied Pain M4 OT- IP ADL's Start: 06/02/19 15:22 Freq: Status: Active Protocol: Document 06/02/19 14:44 PJM (Rec: 06/02/19 15:41 PJ [id number]) OT [id number]-Yvim-Lwtqttr General Evaluation Self-Feeding Ability Standby Assistance Comments OT Self-Feeding Comments pt easily distracted, requires intermittent verbal cues to attend to task OT ADL-Grooming General Evaluation Grooming Ability Standby Assistance Areas Needing Assistance Face Washing OT ADL-Oral Care Comments Oral Care Comments to be assessed OT ADL-Dressing General Eval Lower Body Dressing Ability Total Assistance Areas Needing Assistance Underpants/Brief Pants/Shorts OT ADL-Toileting General Evaluation Toileting Ability Total Assistance Areas Needing Assistance Empty Catheter or Colostomy Comments OT Toileting Comments conn in place OT ADL-Bathing Bathing Type Bathing Type Sponge Bath Comments OT Bathing Comments not performed, pt has RLE cast /acewrap in place on RLE M5 OT- IP IADL's Start: 06/02/19 15:22 Freq: Status: Active Protocol: Document 06/02/19 14:44 PJM (Rec: 06/02/19 15:41 PJM [id number]) OT-Instrumental Activities of Daily Living Deficits IADL Deficits Identified Deficits Home Safety Awareness Awareness of Need for Assistance at Home Decreased Awareness Ability to Problem Solve Emergency Unable to Problem Solve Situations Home Safety Comments does all IADLS at home Medication Management Medication Management Caregiver Administers Money Management Money Management Caregiver Provides Assistance Meal Preparation Meal Preparation Caregiver Provides Assist Biomed Tech Biomed Tech Caregiver Provides Assist Driving Driving Caregiver Provides Assist M6 OT- IP Functional Cognition Start: 06/02/19 15:22 Freq: Status: Active Protocol: Document 06/02/19 14:44 PJM (Rec: 06/02/19 15:41 PJM [id number]) Cognitive Factors Limiting Selfcare Function Cognitive Ability Level of Alertness Alert Patient Orientation Name Attention Span Ability Unable to Sustain Attention Ability to Follow Commands Able to Follow One Step Commands Memory Description Immediate Impaired Short Term Impaired Safety Awareness Decreased Recall of Precautions Decreased Ability to Apply Precautions Underestimates Need for Assistance Problem Solving Ability Unable to Identify Errors Needs Assist to Identify Solutions Executive Function Ability Unable to Filter Distractions Unable to Make Plans Unable to Organize Plans Unable to Remember Details Unable to Integrate Past Experience With Present Action Abstract Thinking Ability Unable to Use Concepts Unable to Make Generalizations Unable to Understand Generalizations Unable to Draw Logical Conclusions Cognitive Comments Cognitive Assessment Comments hx of Alzheimers OT- Vision and Hearing OT- Hearing Assessment OT- Hearing Assessment WFL M7 OT- IP Mobility and Balance Start: 06/02/19 15:22 Freq: Status: Active Protocol: Document 06/02/19 14:44 PJM (Rec: 06/02/19 15:41 PJ [id number]) OT-Transfer Assessment Comments Mobility Comments see P.T. notes; pt seen up in recliner this session OT- Gait Assessment Comments Gait Ability Comments pt has not yet ambulated with P.T. M8 OT- IP Objective Assessments Start: 06/02/19 15:22 Freq: Status: Active Protocol: Document 06/02/19 14:44 PJM (Rec: 06/02/19 15:41 PJM [id number]) OT Gross Range of Motion Upper Extremity Range of Motion Assessment Within Functional Limits OT Strength Upper Extremity Strength Assessment Within Functional Limits Hand Associate Attorney Strength Hand Dominance Right OT- Coordination Assessment Comments Coordination Comments BUE WFL for basic self care OT-Muscle Tone Assessment Muscle Tone WNL Yes OT Sensation Assessment Comments Summary Comments Appears WFL BUE, unable to formally assess due to cognitive deficits Edema Edema Present Edema Comments R toes M9 OT- IP Assessment and Plan Start: 06/02/19 15:22 Freq: Status: Active Protocol: Document 06/02/19 14:44 PJJanny (Rec: 06/02/19 15:41 PJM [id number]) OT Summary Assessment and Plan Potential Analytic Complexity at Evaluation Low Summary OT Impairments Strength Balance Functional Cognition Functional Mobility Dressing Toileting Bathing Toilet Transfers Shower Transfers Assessment Summary Low complexity OT assessment completed on this 73 yr old female with hx of Alzheimers, now with new R ankle fx, TTWB on RLE. Pt is alert but oriented to self only. She follows one step commands consistently. Pt presents with significant performance deficits in all functional mobility/bathroom transfers and has not yet ambulated with P.T. Pt is also below her baseline level of function in lower body dressing. Pt not safe to return home with her due to current high care needs. Pt currently needs max assist of 2 persons for transfers to ensure TTWB on RLE. Recommend SNF at discharge for further rehab services with detention goal of return home with increased caregiver assist. Goals Dressing Goal Moderate Assistance Bathing Goal Moderate Assistance Toilet Transfer Goal Moderate Assistance Bedside Commode OT-Other Goals Bathing goal is for seated upper body sponge bath. Days to Meet Goals 7 Frequency of Treatment Frequency Of Treatment Once a Day Treatment Plan OT Treatment Plan ADL Training Functional Mobility Patient/Family Education Discharge Planning Discharge Recommendations OT Discharge Recommendations SNF Rehab
--- NOTE | 2019-06-02 14:55 | PT.IPTN ---
Current Diagnoses Other osteoporosis without current pathological fracture (06/01/19) Displaced trimalleolar fracture of right lower leg, initial encounter for closed fracture (06/01/19) Surgery Performed Operation Date: 06/01/19 10:30 Actual Procedures p ORIF trimalleolar ankle fracture(Right) - Alysha Seay MD Physical Therapy Treatment Note M2 PT-IP Current Condition Start: 06/01/19 16:13 Freq: NEEDED Status: Active Protocol: Document 06/02/19 09:20 HH (Rec: 06/02/19 11:38 HH [id number]) Physical Therapy Current Condition Current Condition Evaluation Date 06/02/19 Treatment Diagnosis ORIF at R ankle s/p fall, difficulty in walking, generalized weakness. Onset Date 06/01/19 Weight Bearing Status Weight Bearing Status Non-Weight Bearing Allowed Weight Bearing Amount (enter % Per surgeon note, NWB for RLE or #) (%) and TTWB only for balance. M3 PT-IP Subjective Start: 06/01/19 16:13 Freq: NEEDED Status: Active Protocol: Document 06/02/19 14:55 GGD (Rec: 06/02/19 16:34 GGD [id number]) Subjective Physical Therapy Visit Type Type Treatment Note Visit Start Time 14:32 Visit Stop Time 14:55 Total Visit Minutes 23 Number of NEWSAGENT Visits 1 Physical Therapy Visit Comments Patient Comments Pt willing to go back to bed. Therapy Pain Assessment Pain When Pain Assessed During Mobility Pain Present Pain Present Pain Reported Location Right Leg Scale Used unable to rate M4 PT-IP Mobility and Gait Start: 06/01/19 16:13 Freq: NEEDED Status: Active Protocol: Document 06/02/19 14:55 GGD (Rec: 06/02/19 16:34 GGD [id number]) PT-Bed Mobility Assessment Sit to Supine Sit to Supine Minimal Assistance 1 Person Assistance Scooting Scooting to Edge of Bed Minimal Assistance PT-Transfer Assessment Sit to and From Stand Sit to and from Stand Maximum Assistance 2 Person Assistance Equipment Transfer Assistive Device None Gait Belt Orthotic/Prosthetic Devices or Brace: Yes Transfers Transfer Destination Bed Transfer Technique Squat Pivot Transfer Ability Level of Assist Maximum Assistance 2 Person Assistance Use of Upper Extremities M5 PT-IP Objective Assessments Start: 06/01/19 16:13 Freq: NEEDED Status: Active Protocol: Document 06/02/19 09:20 HH (Rec: 06/02/19 11:38 HH [id number]) Orientation Orientation/Cognition Level of Alertness Alert Orientation Name Language Function Ability No Deficits Noted Safety Awareness Decreased Safety Awareness Memory Description Short Term Impaired Mcfp Impaired Comments Pt has advanced Alzheimer's. Only able to follow 1 step command. Pt's Fabricio is her primary CG Gross Range of Motion Upper Extremity ROM Assessment Within Functional Limits Lower Extremity ROM Assessment Right Impaired Strength Upper Extremity Strength Assessment Within Functional Limits Lower Extremity Strength Assessment Within Functional Limits Sensation Assessment Sensation Gross Sensation WNL Muscle Tone Muscle Tone WNL Yes M6 PT-IP Treatment Start: 06/01/19 16:13 Freq: NEEDED Status: Active Protocol: Document 06/02/19 14:55 GGD (Rec: 06/02/19 16:34 GGD [id number]) Physical Therapy Treatment Education Education Provided Precautions Weight Bearing Status M7 PT-IP Assessment and Plan Start: 06/01/19 16:13 Freq: NEEDED Status: Active Protocol: Document 06/02/19 14:55 GGD (Rec: 06/02/19 16:34 GGD [id number]) PT Summary Assessment and Plan Summary Assessment Summary Pt needing max A for transfers . She unable to stand and follow NWB precautions. She able to follow single step cues. Pt would benefit from SNF to improve functional mobility. Frequency of Treatment Frequency Of Treatment Twice a Day Treatment Plan Physical Therapy Treatment Plan Bed Mobility Training Transfer Training Gait Training Therapeutic Exercise Balance Retraining Post Op Education Discharge Planning Hot or Cold Pack Neuromuscular Re-ed Recommendations To Nursing Amount of Assist Needed PT/OT Assist Only Mechanical Lift Discharge Recommendations PT Discharge Recommendations SNF Rehab
--- NOTE | 2019-06-02 14:57 | PC.NURSE ---
Day SHift Pt pulling on lines this AM. PIV SL, Conn with blood in line. Notified PA, order to remove conn catheter. Pt in room, helps to calm pt significantly. pt did c/o pain this AM, medicated with toradol and tylenol, pain decreased.
--- NOTE | 2019-06-02 19:24 | PC.NURSE ---
Evening Shift Note: Pt initially checked on and assessed. Conn catheter removed at this time per MD order. Small amount of hematuria noted in conn collection bag. Dayshift RN had reported that pt had been pulling at conn catheter throughout the day. Conn removed without incident. Pt given scheduled pain medications, toradol and tylenol. Pt reported initially that she felt pain in her R ankle, but when pain medication was due she said she did not have any pain. Pt's at bedside, assisting pt with personal care and companionship. Will continue to monitor, notify MD with changes.
[2019-06-02] MEDS: LEVOTHYROXINE 88 MCG TABLET PO (20:49)
[2019-06-03] MEDS: KETOROLAC 15 MG/ML VIAL IV ×2 (00:02→08:49)
[2019-06-03] MEDS: ACETAMINOPHEN 325 MG TABLET 975 MG PO ×4 (00:10→20:23)
--- NOTE | 2019-06-03 04:28 | PC.NURSE ---
NOC NOTE: Pt yu been sleeping most of the night, incontinent of urine. She has been calm and cooperative when awake. Drsg is intact. Due to confusion and reported behaviors, allowed pt to sleep most of the shift.
[2019-06-03 05:00] VITALS: BP 156/75; PULSE 73; RESP 16; TEMP 36.2; O2SAT 100
--- NOTE | 2019-06-03 05:19 | PC.NURSE ---
EXTRACT PULLER note: Patient can be fidgety and the SCDs would increase that and not allow patient to rest.
[2019-06-03 07:34] VITALS: BP 160/81; PULSE 79; RESP 18; TEMP 36.8; O2SAT 97
[2019-06-03] MEDS: LOSARTAN 50 MG TABLET PO (08:49)
[2019-06-03] MEDS: DOCUSATE 100 MG CAPSULE PO ×2 (08:49→20:23)
[2019-06-03] MEDS: ENOXAPARIN 40 MG/0.4 ML SYRINGE SUBCUT (08:49)
--- NOTE | 2019-06-03 10:47 | PC.NURSE ---
Pt is pleasantly confused but is more alert and oriented when her is here visiting. He is her customer care team coach at home and has been helpful while being here with her at the hospital. She ate 50% of her breakfast and drank 360cc of liquid. She has a cast with vitaly wrap to her r.lower extremity. PPX2, pt denies pain or discomfort, she is getting tylenol and toradol. Pt toes are warm and cast is not to tight on foot. She just did personal care and brushed her teeth. She did have a large incontinence in her brief and sheets, bedding changed and pt is resting comfortably.
--- NOTE | 2019-06-03 11:20 | PT.IPTN ---
Current Diagnoses Other osteoporosis without current pathological fracture (06/01/19) Displaced trimalleolar fracture of right lower leg, initial encounter for closed fracture (06/01/19) Surgery Performed Operation Date: 06/01/19 10:30 Actual Procedures p ORIF trimalleolar ankle fracture(Right) - Alysha Seay MD Physical Therapy Treatment Note M2 PT-IP Current Condition Start: 06/01/19 16:13 Freq: NEEDED Status: Active Protocol: Document 06/02/19 09:20 HH (Rec: 06/02/19 11:38 HH [id number]) Physical Therapy Current Condition Current Condition Evaluation Date 06/02/19 Treatment Diagnosis ORIF at R ankle s/p fall, difficulty in walking, generalized weakness. Onset Date 06/01/19 Weight Bearing Status Weight Bearing Status Non-Weight Bearing Allowed Weight Bearing Amount (enter % Per surgeon note, NWB for RLE or #) (%) and TTWB only for balance. M3 PT-IP Subjective Start: 06/01/19 16:13 Freq: NEEDED Status: Active Protocol: Document 06/03/19 11:20 GGD (Rec: 06/03/19 11:56 GGD [id number]) Subjective Physical Therapy Visit Type Type Treatment Note Visit Start Time 10:58 Visit Stop Time 11:22 Total Visit Minutes 24 Number of TUBE CARRIER Visits 2 Physical Therapy Visit Comments Patient Comments Pt willing to get up to chair. Therapy Pain Assessment Pain When Pain Assessed During Mobility Pain Present Pain Present Pain Reported M4 PT-IP Mobility and Gait Start: 06/01/19 16:13 Freq: NEEDED Status: Active Protocol: Document 06/03/19 11:20 GGD (Rec: 06/03/19 11:56 GGD [id number]) PT-Bed Mobility Assessment Supine to Sit Supine to Sit Minimal Assistance 1 Person Assistance Head of Bed Elevated Scooting Scooting to Edge of Bed Minimal Assistance PT-Transfer Assessment Sit to and From Stand Sit to and from Stand Minimal Assistance 1 Person Assistance Use of Upper Extremities Equipment Transfer Assistive Device None Gait Belt Front Wheeled Walker Orthotic/Prosthetic Devices or Brace: Yes Transfers Transfer Destination Chair Transfer Technique Stand Step Pivot Transfer Ability Level of Assist Moderate Assistance 2 Person Assistance Use of Upper Extremities Comments Mobility Comments Pt needed multiple attempts to stand with FWW. Able to stand from high bed. M5 PT-IP Objective Assessments Start: 06/01/19 16:13 Freq: NEEDED Status: Active Protocol: Document 06/02/19 09:20 HH (Rec: 06/02/19 11:38 HH [id number]) Orientation Orientation/Cognition Level of Alertness Alert Orientation Name Language Function Ability No Deficits Noted Safety Awareness Decreased Safety Awareness Memory Description Short Term Impaired Care Home Impaired Comments Pt has advanced Alzheimer's. Only able to follow 1 step command. Pt's Fabricio is her primary CG Gross Range of Motion Upper Extremity ROM Assessment Within Functional Limits Lower Extremity ROM Assessment Right Impaired Strength Upper Extremity Strength Assessment Within Functional Limits Lower Extremity Strength Assessment Within Functional Limits Sensation Assessment Sensation Gross Sensation WNL Muscle Tone Muscle Tone WNL Yes M6 PT-IP Treatment Start: 06/01/19 16:13 Freq: NEEDED Status: Active Protocol: Document 06/03/19 11:20 GGD (Rec: 06/03/19 11:56 GGD [id number]) Physical Therapy Treatment Education Education Provided Precautions Weight Bearing Status M7 PT-IP Assessment and Plan Start: 06/01/19 16:13 Freq: NEEDED Status: Active Protocol: Document 06/03/19 11:20 GGD (Rec: 06/03/19 11:56 GGD [id number]) PT Summary Assessment and Plan Summary Assessment Summary Pt able to progress transfer with FWW. She need max cues for NWB. Pt improved with following directions with FWW. She had fear of falling with transfers. Frequency of Treatment Frequency Of Treatment Twice a Day Treatment Plan Physical Therapy Treatment Plan Bed Mobility Training Transfer Training Gait Training Therapeutic Exercise Balance Retraining Post Op Education Discharge Planning Hot or Cold Pack Neuromuscular Re-ed Recommendations To Nursing Amount of Assist Needed PT/OT Assist Only Mechanical Lift Discharge Recommendations PT Discharge Recommendations SNF Rehab
[2019-06-03 11:30] VITALS: BP 143/70; PULSE 80; RESP 16; TEMP 37.1; O2SAT 98
[2019-06-03 11:52] LABS: Add Manual Diff / Slide Review NO; Basophils Absolute Auto 100 /uL (0-100); Basophils Percent Auto 0.6 % (0-2); Eosinophils Absolute Auto 0 /uL (0-450); Eosinophils Percent Auto 0.2 % (2-4); Hematocrit 33.6 % (36-46); Hemoglobin 11.3 g/dL (12.0-16.0); Lymphocytes Absolute Auto 1000 /uL (1100-4500); Lymphocytes Percent Auto 7.5 % (25-40); Mean Corpuscular HGB Conc 33.6 % (30-36); Mean Corpuscular Hemoglobin 31.3 PG (26-34); Monocytes Absolute Auto 900 /uL (0-900); Monocytes Percent Auto 6.9 % (3-14); Neutrophils Absolute Auto 11600 /uL (1500-7000); Neutrophils Percent Auto 84.8 % (50-75); Platelet Count 260 X10^3/uL (150-400); Red Blood Cell Count 3.61 X10^6/uL (4.0-5.2); Red Cell Distribution Width 14.4 % (11.6-14.8); White Blood Cell Count 13.7 X10^3/uL (4.5-11.0)
--- NOTE | 2019-06-03 12:31 | PM.PNPO.1 ---
Subjective Date Patient Seen: 06/03/19 Time Patient Seen: 07:25 Interval history: POD ORIF R trimal ankle ORIF. with osteoporosis. doing well, comfortable in bed no f/c/v/n vss Exam Vital Signs (past 8 hours): - 06/03/19 05:00 06/03/19 07:34 06/03/19 11:30 Temperature 97.1 F L 98.3 F 98.8 F Pulse Rate 73 79 80 Respiratory Rate 16 18 16 Blood Pressure 156/75 H 160/81 H 143/70 H Pulse Oximetry 100 97 98 Fraction of Inspired Oxygen 21 Oxygen Delivery Method Room Air Oxygen Flow Rate 0 Narrative Exam Narrative: alert, lying in bed. NAD. breathing unlabored on RA. denies pain, wiggles toes slightly. splint c/d/i. toes wwp Objective Labs Result Diagrams: 06/03/19 11:35 06/01/19 16:19 Labs: Laboratory Results - last 24 hr 06/03/19 11:35 WBC 13.7 H RBC 3.61 L Hgb 11.3 L Hct 33.6 L MCV 93.0 MCH 31.3 MCHC 33.6 RDW 14.4 Plt Count 260 Neut % (Auto) 84.8 H Lymph % (Auto) 7.5 L [place] % (Auto) 6.9 Eos % (Auto) 0.2 L Baso % (Auto) 0.6 Neut # (Auto) 57756 H Lymph # (Auto) 1000 L [place] # (Auto) 900 Eos # (Auto) 0 Baso # (Auto) 100 Assessment & Plan Post-op Postoperative Procedures Operation Date: 06/01/19 10:30 Actual Procedures Side Surgeon p ORIF trimalleolar ankle fracture Right Alysha Seay MD 1. TTWB for balance only RLE. 2. lovenox and scds for dvt prophy in hospital-- at dc stop lovenox and start Aspirin 3. gómez/vit D, prolia for osteoporsis 4. dc to snf with approved Quality VTE Deep Vein Thrombosis/Pulmonary Embolism Present on Admission: No
--- NOTE | 2019-06-03 12:43 | CM.DPNOTE ---
DCP Cont: DC expected Friday. Spoke w/Eva at [facility] and they have accepted pt for admission Friday06.04.19. Updated both pt and spouse this morning and they remain agreeable to this plan, both appreciative. Spouse will plan to be here Friday, cabulance will need to be arranged by [facility]. Following closely for coordination of this plan Friday06.04.19. MEI Downey
--- NOTE | 2019-06-03 13:14 | OT.IP.TRT ---
Current Diagnoses Other osteoporosis without current pathological fracture (06/01/19) Displaced trimalleolar fracture of right lower leg, initial encounter for closed fracture (06/01/19) Surgery Performed Operation Date: 06/01/19 10:30 Actual Procedures p ORIF trimalleolar ankle fracture(Right) - Alysha Seay MD Occupational Therapy Treatment Note M2 OT-IP Current Condition Start: 06/02/19 15:22 Freq: Status: Active Protocol: Document 06/02/19 14:44 PJM (Rec: 06/02/19 15:41 PJM [id number]) Occupational Therapy Current Condition Current Condition Evaluation Date 06/02/19 Treatment Diagnosis decreased self care, mobility s/p R trimalleolar ankle fx s/ p ORIF Diagnosis Onset Date 06/01/19 Post Operative Precautions Other Precautions fall risk, cognitive deficits Weight Bearing Status Weight Bearing Status Touch Down Weight Bearing Allowed Weight Bearing Amount (enter % RLE or #) (%) M3 OT- IP Subjective and Pain Start: 06/02/19 15:22 Freq: Status: Active Protocol: Document 06/03/19 13:14 PJM (Rec: 06/03/19 16:57 PJM [id number]) OT- Subjective Occupational Therapy Visit Type Type Treatment Note Visit Start Time 12:58 Visit Stop Time 13:14 Total Visit Minutes 16 Notes Pt up in chair finishing lunch , agreeable to tx. Occupational Therapy Visit Comments Patient Comments I like these chips. I think I have seen you before. Patient/Caregiver Goals none verbalized this session OT Pain Assessment Pain When Pain Assessed After Treatment Pain Present Pain Present Denied Pain M4 OT- IP ADL's Start: 06/02/19 15:22 Freq: Status: Active Protocol: Document 06/03/19 13:14 PJM (Rec: 06/03/19 16:57 PJM [id number]) OT [id number] General Evaluation Self-Feeding Ability Standby Assistance Comments OT Self-Feeding Comments Pt attempting to eat chips with fork when therapist arrived. Removed distracting items and utensils from tray and to encourage apporpriate finger feeding of chips. OT ADL-Dressing General Eval Lower Body Dressing Ability Minimal Assistance Areas Needing Assistance Underpants/Brief Comments OT Dressing Comments Worked on getting incontinent brief on and off over feet to knees x2 while seated in chair. Pt mod assist with first attempt and min assist with second attempt with less verbal cueing required. Good B hip and knee flexibility noted. M6 OT- IP Functional Cognition Start: 06/02/19 15:22 Freq: Status: Active Protocol: Document 06/03/19 13:14 PJM (Rec: 06/03/19 16:57 PJ [id number]) Cognitive Factors Limiting Selfcare Function Cognitive Ability Level of Alertness Alert Patient Orientation Name Place Situation Attention Span Ability Capable of Focused Attention Ability to Follow Commands Able to Follow One Step Commands Memory Description Immediate Impaired Short Term Impaired Problem Solving Ability Needs Assist to Identify Solutions Cognitive Comments Cognitive Assessment Comments Pt alert, pleasant and cooperative. She is aware of R ankle fx and need to modify her dressing techniques. Possibly recalls this therapist from yesterday. OT- Vision and Hearing OT- Hearing Assessment OT- Hearing Assessment WFL OT- Vision Assessment Visual Acuity WFL M7 OT- IP Mobility and Balance Start: 06/02/19 15:22 Freq: Status: Active Protocol: Document 06/02/19 14:44 PJM (Rec: 06/02/19 15:41 PJ [id number]) OT-Transfer Assessment Comments Mobility Comments see P.T. notes; pt seen up in recliner this session OT- Gait Assessment Comments Gait Ability Comments pt has not yet ambulated with P.T. M9 OT- IP Assessment and Plan Start: 06/02/19 15:22 Freq: Status: Active Protocol: Document 06/03/19 13:14 PJM (Rec: 06/03/19 16:57 PJ [id number]) OT Summary Assessment and Plan Summary OT Impairments Strength Balance Functional Cognition Functional Mobility Self-Feeding Grooming Dressing Toileting Bathing Toilet Transfers Shower Transfers Progress Towards Goals Progressing Toward Goals Assessment Summary Pt pleasant, cooperative and more oriented to situation and more aware of R ankle fx today. Pt demonstrating the ability to increase independence in lower body dressing with repetition of instructions as described above. She will benefit from rehab stay at discharge to increase independence and safety with basic self care and functional mobility prior to return home with as primary caregiver and some respite caregivers. Per social work case manager, pt may d/c to SNF tomorrow. Goals Grooming Goal Standby Assistance Dressing Goal Minimal Assistance Toileting Goal Minimal Assistance Bathing Goal Minimal Assistance Toilet Transfer Goal Minimal Assistance Bedside Commode OT-Other Goals Bathing goal is for seated upper body sponge bath. Days to Meet Goals 6 Frequency of Treatment Frequency Of Treatment Once a Day Treatment Plan OT Treatment Plan ADL Training Functional Mobility Patient/Family Education Discharge Planning Discharge Recommendations OT Discharge Recommendations SNF Rehab Home Equipment Needs to be determined in next rehab setting
--- NOTE | 2019-06-03 14:30 | PT.IPTN ---
Current Diagnoses Other osteoporosis without current pathological fracture (06/01/19) Displaced trimalleolar fracture of right lower leg, initial encounter for closed fracture (06/01/19) Surgery Performed Operation Date: 06/01/19 10:30 Actual Procedures p ORIF trimalleolar ankle fracture(Right) - Alysha Seay MD Physical Therapy Treatment Note M2 PT-IP Current Condition Start: 06/01/19 16:13 Freq: NEEDED Status: Active Protocol: Document 06/02/19 09:20 HH (Rec: 06/02/19 11:38 [id number]) Physical Therapy Current Condition Current Condition Evaluation Date 06/02/19 Treatment Diagnosis ORIF at R ankle s/p fall, difficulty in walking, generalized weakness. Onset Date 06/01/19 Weight Bearing Status Weight Bearing Status Non-Weight Bearing Allowed Weight Bearing Amount (enter % Per surgeon note, NWB for RLE or #) (%) and TTWB only for balance. M3 PT-IP Subjective Start: 06/01/19 16:13 Freq: NEEDED Status: Active Protocol: Document 06/03/19 14:30 GGD (Rec: 06/03/19 15:55 GGD [id number]) Subjective Physical Therapy Visit Type Type Treatment Note Visit Start Time 14:13 Visit Stop Time 14:28 Total Visit Minutes 15 Number of INSURANCE JOB TITLES Visits 3 Physical Therapy Visit Comments Patient Comments Pt states she needs to use the bathroom. Therapy Pain Assessment Pain When Pain Assessed At Rest Pain Present Pain Present Denied Pain M4 PT-IP Mobility and Gait Start: 06/01/19 16:13 Freq: NEEDED Status: Active Protocol: Document 06/03/19 14:30 GGD (Rec: 06/03/19 15:55 GGD [id number]) PT-Transfer Assessment Sit to and From Stand Sit to and from Stand Minimal Assistance 1 Person Assistance Use of Upper Extremities Equipment Transfer Assistive Device None Gait Belt Front Wheeled Walker Orthotic/Prosthetic Devices or Brace: Yes Transfers Transfer Destination Bedside Commode Transfer Technique Stand Step Pivot Transfer Ability Level of Assist Moderate Assistance 2 Person Assistance Use of Upper Extremities M5 PT-IP Objective Assessments Start: 06/01/19 16:13 Freq: NEEDED Status: Active Protocol: Document 06/02/19 09:20 HH (Rec: 06/02/19 11:38 [id number]) Orientation Orientation/Cognition Level of Alertness Alert Orientation Name Language Function Ability No Deficits Noted Safety Awareness Decreased Safety Awareness Memory Description Short Term Impaired Shelter Impaired Comments Pt has advanced Alzheimer's. Only able to follow 1 step command. Pt's Fabricio is her primary CG Gross Range of Motion Upper Extremity ROM Assessment Within Functional Limits Lower Extremity ROM Assessment Right Impaired Strength Upper Extremity Strength Assessment Within Functional Limits Lower Extremity Strength Assessment Within Functional Limits Sensation Assessment Sensation Gross Sensation WNL Muscle Tone Muscle Tone WNL Yes M6 PT-IP Treatment Start: 06/01/19 16:13 Freq: NEEDED Status: Active Protocol: Document 06/03/19 14:30 GGD (Rec: 06/03/19 15:55 GGD [id number]) Physical Therapy Treatment Education Education Provided Precautions Weight Bearing Status M7 PT-IP Assessment and Plan Start: 06/01/19 16:13 Freq: NEEDED Status: Active Protocol: Document 06/03/19 14:30 GGD (Rec: 06/03/19 15:55 GGD [id number]) PT Summary Assessment and Plan Summary Assessment Summary Pt improved with transfers. She needs cues for NWB, but able to sit to stand with less assist. She improved standing and scooting foot during transfers. Frequency of Treatment Frequency Of Treatment Twice a Day Treatment Plan Physical Therapy Treatment Plan Bed Mobility Training Transfer Training Gait Training Therapeutic Exercise Balance Retraining Post Op Education Discharge Planning Hot or Cold Pack Neuromuscular Re-ed Recommendations To Nursing Amount of Assist Needed 2 Person Assist Discharge Recommendations PT Discharge Recommendations SNF Rehab
[2019-06-03 15:30] VITALS: BP 135/54; PULSE 84; RESP 17; TEMP 37.1; O2SAT 96
--- NOTE | 2019-06-03 18:34 | PC.NURSE ---
Addendum entered by Coretta Stallings R.N. 06/03/19 22:27: Pt pleasant and cooperative. Some confusion throughout evening. HL intact/patent. Cast CDI. Call light w/in reach, bed alarm on for pt safety. Continue w/plan of care. Original Note: Pt sitting in chair. Some forgetfulness noted. Lungs clear, SpO2 96% RA Cast/dsg to right lower leg CDI Denies discomfort. in room Call light w/in reach, chair alarm on for pt safety.
[2019-06-03 19:32] VITALS: BP 161/82; PULSE 90; RESP 18; TEMP 37.5; O2SAT 99
[2019-06-03] MEDS: LEVOTHYROXINE 88 MCG TABLET PO (21:30)
[2019-06-03 23:52] VITALS: BP 167/82; PULSE 102; RESP 16; TEMP 36.9; O2SAT 99
[2019-06-04] MEDS: KETOROLAC 15 MG/ML VIAL IV ×2 (01:47→11:04)
--- NOTE | 2019-06-04 02:56 | PC.NURSE ---
Sandblaster Supervisor Summary PO day 3 s/p right ankle ORIF. When assessing for pain, patient reported mild pain in right ankle but was unable to report on a numeric scale. Gave scheduled toradol; no other pain medications indicated. VSS and pt was content while awake and at rest. She is calm and cooperative, but most of the time confused. Alert and oriented to self, month and year of ; she thought she was in [place]. At the start of the shift she was holding the phone and stated she thought she was trying to call her because she felt confused. When asked what she was confused about, she said she did not know other than something did not feel right. Assisted pt in attempt to call , however was unable to get through to home or cell. The patient was content despite being unable to reach him by phone. Provided reassurance and emotional support.
[2019-06-04 06:43] VITALS: BP 117/79; PULSE 85; RESP 18; TEMP 36.7; O2SAT 98
[2019-06-04 07:50] VITALS: BP 144/73; PULSE 86; RESP 16; TEMP 37.3; O2SAT 98
--- NOTE | 2019-06-04 09:39 | P.DS_ITS ---
History of Present Illness Date Patient Seen: 06/04/19 Time Patient Seen: 09:37 Chief complaint: [id number] Narrative: Hospital day 4, postop day 3 following right ankle trimalleolar fracture with ORIF by Dr. Seay. Patient has remained stable since surgery. She does have history of Alzheimer's, osteoporosis, hypothyroid, hypertension. She has been toe-touch weight-bearing to the right leg. Patient needing more assistance than what can be done at home. Patient now ready for discharge to SNF. Discharge Providers Date of admission: 06/01/19 08:20 Discharge Date: 06/04/19 Primary care physician: Skyler Fontana MD Consults: 06/01/19 15:50 Consult to Discharge Planning Routine Comment: SNF- [facility] Consult to Physical Therapy Evaluate & Treat Comment: Physician Instructions: Evaluate and Treat Consult to Respiratory Therapy Evaluate & Treat Comment: Physician Instructions: Evaluate and treat 06/02/19 12:11 Consult to Occupational Therapy Evaluate & Treat Comment: Physician Instructions: Evaluate and treat Discharge provider: Nolan Singh PA-C Summary Discharge Diagnosis: Status post right ankle trimalleolar fracture ORIF Hospital Course: Patient brought to hospital on 06/01/2019 for above noted surgery. She remained stable postoperatively. Did have some issues initially with her Alzheimer's but was able to stabilize as she remained in the hospital. Patient is toe-touch weight-bearing to the right leg and needing further assist more than she can get home. Discharged to [facility]. Status at Discharge Cognitive/behavioral status at discharge: oriented Functional status at discharge: uses cane/walker Overall status at discharge: patient is progressing back to baseline Time Spent with Patient Less than 30 minutes Exam Vital Signs (past 8 hours): - 06/04/19 06:43 06/04/19 07:50 Temperature 98.0 F 99.1 F Pulse Rate 85 86 Respiratory Rate 18 16 Blood Pressure 117/79 144/73 H Pulse Oximetry 98 98 Fraction of Inspired Oxygen 21 Oxygen Delivery Method Room Air Oxygen Flow Rate 0 Narrative Exam Narrative: Patient is alert and responsive in no acute distress sitting in bed. Right leg a bulky dressing to right lower leg is in place without drainage. Good blanching and sensation to toes. Objective Labs Result Diagrams: 06/03/19 11:35 06/01/19 16:19 Labs: Laboratory Results - last 24 hr 06/03/19 11:35 WBC 13.7 H RBC 3.61 L Hgb 11.3 L Hct 33.6 L MCV 93.0 MCH 31.3 MCHC 33.6 RDW 14.4 Plt Count 260 Neut % (Auto) 84.8 H Lymph % (Auto) 7.5 L [place] % (Auto) 6.9 Eos % (Auto) 0.2 L Baso % (Auto) 0.6 Neut # (Auto) 14271 H Lymph # (Auto) 1000 L [place] # (Auto) 900 Eos # (Auto) 0 Baso # (Auto) 100 Discharge Plan Discharge Plan Patient Disposition: SNF Transfer to: [facility] Under care of provider: Facility MD or PCP Transportation: Facility vehicle Discharge comment: Discharge for further care with toe-touch weight-bearing for balance only to the right lower leg. Patient needs postop appointment with Dr. Seay at [place] office at 2 weeks postop. I certify the postop hospital custodial care is medically necessary on a continuing basis for any conditions for which he/ she received care during this hospitalization.: Yes The receiving facility has agreed to accept transfer and provide medical treatment.: Yes Discharge Med Rec/Prescriptions Prescriptions: New acetaminophen 325 mg Tablet 975 mg PO TID Qty: 30 RF: 0 docusate sodium [DOK] 100 mg Capsule 100 mg PO BID Qty: 30 RF: 0 aspirin 81 mg tablet,delayed release (DR/EC) 162 mg PO DAILY Qty: 60 RF: 0 calcium carbonate-vitamin D3 [Calcium with Vitamin D] 600 mg(1,500mg) -400 unit tablet 1 tab PO BID Qty: 60 RF: 0 oxycodone 5 mg Tablet 2.5 mg PO Q3HR PRN (Reason: Pain, Moderate (4-6)) Qty: 15 RF: 0 Continued denosumab [Prolia] 60 mg/mL syringe 60 mg SUBCUT [id number] RF: 0 losartan 50 mg tablet 50 mg PO DAILY RF: 0 levothyroxine 88 mcg tablet 88 mcg PO QPM RF: 0 Discontinued hydrocodone-acetaminophen [[place]] 5-325 mg tablet 1 tab PO Q6H PRN (Reason: pain) Qty: 10 RF: 0 Follow up/Referrals: Skyler Fontana MD [Primary Care Provider] - Discharge Health Status Brief summary of current health status: Patient is status post right ankle trimalleolar fracture ORIF with lower leg splint. Toe-touch weight-bearing to right lower leg for balance only. Patient has history of Alzheimer's, os teoporosis, hypothyroid, hypertension. Multidrug resistant organism: No MDRO Provider Discharge Instructions Diet: Diet as Tolerated Liquid consistency: Normal/Thin Food texture: Regular Activity: Ambulate as tolerated with toe-touch weight-bearing to right lower leg. Skin/Wound/Dressing Care Report to your healthcare provider any signs of infection, such as:: chills, fever, night sweats, increased pain, unusual drainage and unusual redness Dressing: Keep right lower leg splint and dressing in place until postop visit [facility] Reason for rehabilitation: Post-operative therapy Rehab type: Physical therapy and Occupational therapy Restrictions to mobility: Toe-touch weight-bearing to right lower leg for balance only. Visit Report/Discharge Packet Instructions: DI for Open Reduction Internal Fixation Surgery Discharge Data Primary Care Provider: Skyler Fontana Attending Provider: Alysha Seay Admit Date/Time: 06/01/19 08:20 Quality VTE Deep Vein Thrombosis/Pulmonary Embolism Present on Admission: No
[2019-06-04 11:00] VITALS: BP 137/80; PULSE 77; RESP 16; TEMP 36.7; O2SAT 99
[2019-06-04] MEDS: LOSARTAN 50 MG TABLET PO (11:01)
[2019-06-04] MEDS: ENOXAPARIN 40 MG/0.4 ML SYRINGE SUBCUT (11:01)
[2019-06-04] MEDS: DOCUSATE 100 MG CAPSULE PO (11:01)
[2019-06-04] MEDS: ACETAMINOPHEN 325 MG TABLET 975 MG PO (11:01)
--- NOTE | 2019-06-04 11:18 | PT.IPTN ---
Current Diagnoses Other osteoporosis without current pathological fracture (06/01/19) Displaced trimalleolar fracture of right lower leg, initial encounter for closed fracture (06/01/19) Surgery Performed Operation Date: 06/01/19 10:30 Actual Procedures p ORIF trimalleolar ankle fracture(Right) - Alysha Seay MD Physical Therapy Treatment Note M2 PT-IP Current Condition Start: 06/01/19 16:13 Freq: NEEDED Status: Active Protocol: Document 06/02/19 09:20 HH (Rec: 06/02/19 11:38 [id number]) Physical Therapy Current Condition Current Condition Evaluation Date 06/02/19 Treatment Diagnosis ORIF at R ankle s/p fall, difficulty in walking, generalized weakness. Onset Date 06/01/19 Weight Bearing Status Weight Bearing Status Non-Weight Bearing Allowed Weight Bearing Amount (enter % Per surgeon note, NWB for RLE or #) (%) and TTWB only for balance. M3 PT-IP Subjective Start: 06/01/19 16:13 Freq: NEEDED Status: Active Protocol: Document 06/04/19 09:25 HH (Rec: 06/04/19 11:18 [id number]) Subjective Physical Therapy Visit Type Type Treatment Note Visit Start Time 09:25 Visit Stop Time 09:54 Total Visit Minutes 29 Notes attended session Number of SHAKE TABLE OPERATOR Visits 0 Physical Therapy Visit Comments Patient Comments Pt states she needs to use the bathroom. M4 PT-IP Mobility and Gait Start: 06/01/19 16:13 Freq: NEEDED Status: Active Protocol: Document 06/04/19 09:25 HH (Rec: 06/04/19 11:18 [id number]) PT-Bed Mobility Assessment Supine to Sit Supine to Sit Minimal Assistance 1 Person Assistance Head of Bed Elevated Sit to Supine Sit to Supine Minimal Assistance 1 Person Assistance Scooting Scooting to Edge of Bed Minimal Assistance PT-Transfer Assessment Sit to and From Stand Sit to and from Stand Minimal Assistance 1 Person Assistance Use of Upper Extremities Equipment Transfer Assistive Device None Gait Belt Front Wheeled Walker Orthotic/Prosthetic Devices or Brace: Yes Transfers Transfer Destination Bedside Commode Transfer Technique Stand Step Pivot Transfer Ability Level of Assist Moderate Assistance 2 Person Assistance Use of Upper Extremities Comments Mobility Comments Pt did stand pivot twice today from bed to BSC then chair ( left). Pt was able to hop once for stand pivot today with assistance on pivoting her walker. M5 PT-IP Objective Assessments Start: 06/01/19 16:13 Freq: NEEDED Status: Active Protocol: Document 06/02/19 09:20 HH (Rec: 06/02/19 11:38 [id number]) Orientation Orientation/Cognition Level of Alertness Alert Orientation Name Language Function Ability No Deficits Noted Safety Awareness Decreased Safety Awareness Memory Description Short Term Impaired Fpc Impaired Comments Pt has advanced Alzheimer's. Only able to follow 1 step command. Pt's Fabricio is her primary CG Gross Range of Motion Upper Extremity ROM Assessment Within Functional Limits Lower Extremity ROM Assessment Right Impaired Strength Upper Extremity Strength Assessment Within Functional Limits Lower Extremity Strength Assessment Within Functional Limits Sensation Assessment Sensation Gross Sensation WNL Muscle Tone Muscle Tone WNL Yes M6 PT-IP Treatment Start: 06/01/19 16:13 Freq: NEEDED Status: Active Protocol: Document 06/04/19 09:25 HH (Rec: 06/04/19 11:18 [id number]) Physical Therapy Treatment Education Education Provided Precautions Weight Bearing Status M7 PT-IP Assessment and Plan Start: 06/01/19 16:13 Freq: NEEDED Status: Active Protocol: Document 06/04/19 09:25 HH (Rec: 06/04/19 11:18 [id number]) PT Summary Assessment and Plan Summary Assessment Summary Pt improved with transfers. She was able to hop once today but cont needed cues for NWB on RLE and walking management and sequencing. Pt will be transferred to SNF for rehab today. Frequency of Treatment Frequency Of Treatment Twice a Day Treatment Plan Physical Therapy Treatment Plan Bed Mobility Training Transfer Training Gait Training Therapeutic Exercise Balance Retraining Post Op Education Discharge Planning Hot or Cold Pack Neuromuscular Re-ed Other Recommendations and Next Treatment bed mob and transfer as juve Focus stand pivot transfer at this point. step simple command and demonstration, soft spoken tone and quite environment Recommendations To Nursing Amount of Assist Needed 2 Person Assist Discharge Recommendations PT Discharge Recommendations SNF Rehab
--- NOTE | 2019-06-04 13:51 | CM.DPNOTE ---
DC Note: DC order to SNF in place, this TRANSMITTER OPERATOR coordinated pt's DC to [facility]. Placed call to Eva at [facility], faxed completed and signed med list, Rx for Oxycodone, DC Summary and SNF order w/completed PAS[facility]. Cabulance through [facility] arranged by Eva for [phone]. Pt/spouse aware and agreeable to above plan, IMM reviewed and signed by spouse Fabricio. P: DC to [facility] via [facility] today. MEI Downey
--- NOTE | 2019-06-04 14:01 | PC.NURSE ---
Report called to [facility].
--- NOTE | 2019-06-04 14:21 | OT.IP.TRT ---
Current Diagnoses Other osteoporosis without current pathological fracture (06/01/19) Displaced trimalleolar fracture of right lower leg, initial encounter for closed fracture (06/01/19) Surgery Performed Operation Date: 06/01/19 10:30 Actual Procedures p ORIF trimalleolar ankle fracture(Right) - Alysha Seay MD Occupational Therapy Treatment Note M3 OT- IP Subjective and Pain Start: 06/02/19 15:22 Freq: Status: Active Protocol: Document 06/04/19 10:13 [facility] (Rec: 06/04/19 14:21 [facility] [id number]) OT- Subjective Occupational Therapy Visit Type Type Treatment Note Visit Start Time 10:13 Visit Stop Time 10:52 Total Visit Minutes 39 Occupational Therapy Visit Comments Patient Comments Pt having to have a bowel movement. OT Pain Assessment Pain When Pain Assessed After Treatment Pain Present Pain Present Denied Pain M4 OT- IP ADL's Start: 06/02/19 15:22 Freq: Status: Active Protocol: Document 06/04/19 10:13 [facility] (Rec: 06/04/19 14:21 [facility] [id number]) OT ADL-Toileting General Evaluation Toileting Ability Maximum Assistance Areas Needing Assistance Manage Clothing Perform Perineal Hygiene Comments OT Toileting Comments Pt needing one person assist to stand with FWW while another person able to do all hygiene needs. M6 OT- IP Functional Cognition Start: 06/02/19 15:22 Freq: Status: Active Protocol: Document 06/04/19 10:13 [facility] (Rec: 06/04/19 14:21 [facility] [id number]) Cognitive Factors Limiting Selfcare Function Cognitive Ability Level of Alertness Alert Patient Orientation Name Place Situation Attention Span Ability Capable of Focused Attention Ability to Follow Commands Able to Follow One Step Commands Memory Description Immediate Impaired Short Term Impaired Safety Awareness Underestimates Need for Assistance Problem Solving Ability Needs Assist to Identify Solutions Cognitive Comments Cognitive Assessment Comments Pt able to recall TTWb status. Pt needs step by step instructions to scoot forwards , come to stand, use of BUE in the armrests to help to push to stand with MAX A x 1. M7 OT- IP Mobility and Balance Start: 06/02/19 15:22 Freq: Status: Active Protocol: Document 06/04/19 10:13 [facility] (Rec: 06/04/19 14:21 [facility] [id number]) OT-Transfer Assessment Sit to and From Stand Sit to and from Stand Moderate Assistance 2 Person Assistance Transfers Transfer Ability Moderate Assistance 2 Person Assistance Technique Transfer Destination Bedside Commode Chair Devices Transfer Assistive Devices Gait Belt Front Wheeled Walker Comments Mobility Comments MOD A x 2 to stand with FWW, Assist to guide FWW, for balance and to be sure pt following TTWB for RLE. OT- Balance Assessment Sitting Balance and Reactions Static Sitting Balance Ability Normal Dynamic Sitting Balance Ability Good Standing Balance and Reactions Static Standing Balance Ability Poor Comments Other Balance Tests/Deviations/Treatment Due to BUE weakness, pt has : difficulty to stand upright with FWW, and difficulty to take a step with LLE. M9 OT- IP Assessment and Plan Start: 06/02/19 15:22 Freq: Status: Active Protocol: Document 06/04/19 10:13 [facility] (Rec: 06/04/19 14:21 [facility] [id number]) OT Summary Assessment and Plan Summary Assessment Summary Pt will benefit from skilled rehab to work on increasing overall strength especially with BUE to increase independence with ADl and functional mobility needs. Discharge Recommendations OT Discharge Recommendations SNF Rehab
== END 2019-06-04 13:50 | DRG 494 ==
LOC: OR 08:23 → AC 14:41
PROVIDERS: Admitting Provider Orthopaedic Surgery Foot and Ankle Surgery; PCP Internal Medicine; Visit Provider Orthopaedic Surgery Foot and Ankle Surgery
PROC: 0SSF04Z Reposition Right Ankle Joint with Internal Fixation Device, Open Approach (ICD-10-PCS; principal; 2019-06-01 10:30)
DX: S82.851A Displaced trimalleolar fracture of right lower leg, initial encounter for closed fracture (principal); G30.9 Alzheimer's disease, unspecified; F02.80 Dementia in other diseases classified elsewhere, unspecified severity, without behavioral disturbance, psychotic disturbance, mood disturbance, and anxiety; M81.0 Age-related osteoporosis without current pathological fracture; E03.9 Hypothyroidism, unspecified; I10 Essential (primary) hypertension; W17.89XA Other fall from one level to another, initial encounter; Y92.008 Other place in unspecified non-institutional (private) residence as the place of occurrence of the external cause
CPT/HCPCS: 36415; 64450; 73610; 76000; 80048; 85025; 85027; 94760; 97163; 97165; 97530; 97535; J0690; J1100; J1650; J1885; J2250; J2405; J2704; J3010

== ENCOUNTER 2019-07-23 12:50 | Inpatient (IN) | payer MEDICARE, OTHER, SELFPAY ==
[2019-07-23] VITALS (11 sets, daily range): BP systolic 115–181; BP diastolic 70–89; PULSE 66–90; RESP 13–22; TEMP 36.6–37.1; O2SAT 96–99; BMI 18.9
[2019-07-23] MEDS: LACTATED RINGERS 1,000 ML 100 ML IV (13:20)
--- NOTE | 2019-07-23 13:26 | PM.PREOP ---
Pre-operative Note Interval Note History & Physical reviewed/Exam performed by Physician: Yes Changes to H&P: No
--- NOTE | 2019-07-23 15:32 | PM.OP.1 ---
Operative Date/Time/Diagnoses Date of procedure: 07/23/19 Time of procedure: 15:50 Pre-op diagnosis: Postoperative wound dehiscence and infection right trimalleolar ankle fracture, surgical site infection Post-op diagnosis: same Procedure & Clinicians Procedure: Debridement muscle and fascia right ankle surgical site dehiscence 20 sq cm or less CPT code 13137-39 Primary closure Same procedure as scheduled: Yes Indications: The patient is 73-year-old female that sustained a trimalleolar ankle fracture status post open reduction internal fixation on 06/01/2019. Patient had been doing well postoperatively. Over the last week she was noted to have an area that was rubbing on her boot increased redness drainage and development of wound along the incision line. This had been cared for by her home health. This 1st came to my attention yesterday at the patient's regularly scheduled clinic visit. The area was cellulitic and there been wound dehiscence concerning for infection. Given the area full-thickness dehiscence and underlying hardware the patient has been indicated for formal operative irrigation debridement cultures and closure. We have discussed culture appropriate antibiotics with a goal of treatment while maintaining hardware fixation. The patient and her understand and agree with the plan. The risks and benefits of the procedure have been discussed with the patient even opportunity to ask questions. The risks of surgery include but are not limited to infection, malunion, nonunion, persistence of pain, damage to nerves and blood vessels, need for additional procedures., posttraumatic arthritis, DVT, PE, cardiopulmonary complications and . The patient expressed a thorough understanding of the risks and benefits of surgery and has elected to proceed. Consent was signed in the office. Surgeon: Alysha Seay Click Yes if Unassisted: Yes Operative Notes Findings: Since proximal 4 cm of lateral incision with subcutaneous tissue and fibrinous tissue exposed. No exposed hardware. Surrounding erythema. Dehiscence area was excised in elliptical fashion. Down to fascia. No purulence or abscess cavities found. Poor quality nonviable tissue was debrided. Peroneal tendons were exposed in the posterior aspect of the wound and the plate more anterior. Wound was thoroughly irrigated and closed in layers primarily with subcutaneous absorbable sutures and nylon in the skin. Closure Type: primary Specimen(s): other (Tissue for culture) Estimated Blood Loss (mL): 2 Blood products transfused: none Tourniquet time (min): 3 Procedure in detail: Patient was seen in the preoperative area site of surgery was marked and informed consent confirmed. Final questions were answered. Patient was then brought back to the operating room by the anesthesia team. Patient was positioned supine on the operative table. Appropriate levels of anesthesia were administered. All bony prominences well padded. Well-padded thigh tourniquet was placed on the operative extremity. Patient was then prepped and draped in the standard sterile fashion. A formal time-out procedure was performed confirming the patient's side and site of surgery presence of informed consent. Operative antibiotics were held until cultures were taken. [place] exsanguination was utilized the tourniquet was elevated on the thigh to 250 mm of mercury. This was elevated for 3 minutes. Next attention was turned to the lateral incision which has dehisced on the proximal half. Sharp incision was taken along the tissue borders these were debrided and deep tissue was sent for culture. The entire wound dehiscence area was ellipsed out. This exposed underlying fascia peroneal tendons posteriorly and the fibula and plate anteriorly. No gross purulence or abscess was encountered. Tourniquet was released and the wound was irrigated with 6 L of saline using cysto tubing. The 1st 3 L containing antibiotic. IV antibiotics were administered. All nonviable and fibrinous tissue was debrided thoroughly leaving good bleeding tissue. Wound was closed in layers with 2 O PDS deep and 3 O nylon suture in the skin. Soft dressing was placed with Xeroform gauze a Tegaderm dressing and then an Oral wrap. Steri-Strips were used to reinforce the wound closure. Patient was woken from anesthesia and taken to the recovery unit in good condition. All counts were correct. Complications: none Post-operative Condition: stable Disposition: Acute Care Plan for aftercare: Patient will be weightbear as tolerated on the right lower extremity with the ASO brace. She will be admitted for IV antibiotics and start with broad-spectrum narrowed as able. Anticipate discharge with PICC line for approximately 2 weeks followed by oral antibiotics as appropriate. Will discharge with home health physical therapy for weight-bearing advancement.
--- NOTE | 2019-07-23 15:42 | SUR.PREOP ---
Block start time [1509] . Monitoring initiated and maintained throughout procedure. Oxygen and medications given per anesthesiologist instructions. Patient remained stable throughout procedure, no adverse reactions noted. Block end time [1528].
[2019-07-23] MEDS: CEFAZOLIN 2 GM/100 ML FROZ.PIGGY IV (15:58)
--- NOTE | 2019-07-23 16:00 | SUR.OPER ---
Supine on padded OR bed, head on pillow, arms secured on padded arm boards at <90 degrees abduction, legs uncrossed, safety belt at thigh, tape over blanket over lower legs.
--- NOTE | 2019-07-23 16:04 | PM.PROC.1 ---
Procedures Date/Time Date of procedure: 07/23/19 Time of procedure: 15:00 General Procedure description: Ultrasound guided popliteal sciatic and adductor canal nerve blocks for post op pain control after right ankle debridement by Dr. Seay. Risk and benefits of procedure discussed with patient. ASA monitoring applied to patient. Oxygen given via nasal cannula. 25 mg/kg/min propofol infusion given for procedural sedation. Skin site was prepped with chlorhexidine and allowed to fully dry. Sterile gloves, mask, hat and probe cover were used to maintain sterility. 2% lidocaine and 30ga needle was used to make a small skin wheal at needle insertion site. Under ultrasound guidance, a 21ga 100mm [place] needle was directed near the division of the sciatic nerve into tibial and peroneal nerve in the popliteal fossa (lateral approach). Patient reported no parasthesias. After negative aspiration, 20 mL mixture of 0.25% ropivicaine, 1% lidocaine and 5mg dexamethasone were injected around sciatic nerve. Similarly for adductor canal nerve block, skin was prepped and anesthetized with lidocaine skin wheal. US was used to find the adductor canal at level of mid medial thigh. Needle tip was directed near femoral artery and saphenous nerve. After negative aspiration, 20mL mixture of 0.25% ropivacaine, 1% lidocaine and 5mg dexamethasone were injected with no parasthesias. Patient tolerated procedure well. Sciatic nerve (upper photo); Adductor canal (lower photo)
[2019-07-23] MEDS: BUPIVACAINE 0.25% (PF) VIAL 30 ML INJ (16:07)
[2019-07-23] MEDS: SODIUM CHLORIDE IRRIG SOLUTION 3,000 ML, GENTAMICIN 240 MG IRR (16:11)
[2019-07-23] MEDS: LACTATED RINGERS 1,000 ML 75 ML IV (17:59)
[2019-07-23 18:18] LABS: Erythrocyte Sedimentation Rate 14 MM/HR (0-20)
[2019-07-23 18:26] LABS: C-Reactive Protein Quant 1.1 mg/dL (<1.0)
[2019-07-23 18:30] LABS: BUN Creatinine Ratio 21.7 (6-22); Blood Urea Nitrogen 13 mg/dL (7-17); Calcium 9.5 mg/dL (8.4-10.2); Carbon Dioxide 30 mmol/L (22-32); Chloride 102 mmol/L (98-107); Estimated Glomerular Filt Rate > 60.0 mL/min (>60); Glucose 135 mg/dL (80-110); HEMOLYSIS 20 (0-50); Potassium 4.4 mmol/L (3.4-5.1); Sodium 139 mmol/L (137-145)
[2019-07-23] MEDS: VANCOMYCIN 1,000 MG/200 ML PIGGYBACK 200 MG IV (19:30)
[2019-07-23] MEDS: ACETAMINOPHEN 325 MG TABLET 975 MG PO (22:24)
[2019-07-23] MEDS: DOCUSATE 100 MG CAPSULE PO (22:25)
--- NOTE | 2019-07-23 22:52 | PC.NURSE ---
ADMIT, EVENING SHIFT Report received from PACU. Pt admitted at 1720. Alert, disoriented. VSS. No c/o pain. Pt. confused but calm. Not trying to get OOB. Bed alarm set. Pt. moved to Room 206 for better visualization from nursing station. Got pt. OOB, was incontinent and bed soaked. Attempted to stand, pivot to BSC, but pt. had poor posture and was not steady on her feet. Stood and bore some weight, but didn't pivot or transfer.
--- NOTE | 2019-07-24 02:13 | PC.NURSE ---
Shift note: Received pt from evening shift. Pt is alert to self and , says shes in the hospital to get fixed up, is forgetful stating that she can get up and get water when I need it needing reminding that she had surgery on her ankle. Pt is quite fidgety with her blankets and will turn her attention to her IV site and tubing, she is redirected with unfolded towels frequently to keep her hands busy. Pt is unaware when she has urinated and required a linen and gown change. Pt able to make needs known when directly asked by staff, unsure if pt could use call light appropriately but it is functional and within reach. Pt has an vitaly wrap over dressing covered by brace on right ankle, WBAT with FWW. Pt is a high fall risk d/t falls and mentation, is currently in view of nursing station and this commercial lines underwriter. Will continue to monitor for pt safety.
[2019-07-24 05:05] VITALS: BP 180/79; PULSE 94; RESP 17; TEMP 37.1; O2SAT 99
[2019-07-24] MEDS: VANCOMYCIN 1,000 MG/200 ML PIGGYBACK 200 MG IV ×2 (06:11→18:02)
[2019-07-24] MEDS: LEVOTHYROXINE 88 MCG TABLET PO (06:12)
[2019-07-24 07:30] LABS: Hematocrit 41.1 % (36-46); Hemoglobin 13.8 g/dL (12.0-16.0); Mean Corpuscular HGB Conc 33.6 % (30-36); Mean Corpuscular Hemoglobin 30.9 PG (26-34); Platelet Count 239 X10^3/uL (150-400); Red Blood Cell Count 4.47 X10^6/uL (4.0-5.2); Red Cell Distribution Width 14.2 % (11.6-14.8); White Blood Cell Count 8.5 X10^3/uL (4.5-11.0)
[2019-07-24] MEDS: LOSARTAN 50 MG TABLET PO (09:45)
[2019-07-24] MEDS: ENOXAPARIN 40 MG/0.4 ML SYRINGE SUBCUT (09:46)
[2019-07-24] MEDS: DOCUSATE 100 MG CAPSULE PO ×2 (09:46→21:06)
[2019-07-24] MEDS: ACETAMINOPHEN 325 MG TABLET 975 MG PO ×3 (09:46→21:06)
[2019-07-24 10:00] VITALS: BP 173/78; PULSE 88; RESP 16; TEMP 36.3; O2SAT 100
--- NOTE | 2019-07-24 12:47 | PT.IIE ---
Current Diagnoses Displaced trimalleolar fracture of right lower leg, initial encounter for closed fracture (07/23/19) Infection and inflammatory reaction due to other internal orthopedic prosthetic devices, implants and grafts, initial encounter (07/23/19) Surgery Performed Operation Date: 07/23/19 14:30 Actual Procedures p DEBRIDMENT OF MUSCLE AND FASCIA, RIGHT ANKLE(Right) - Alysha Seay MD Surgical History (Last Updated 05/25/19 @ 17:27 by ALEX Curry) History of thyroidectomy (Acute) Medical History (Last Updated 05/28/19 @ 11:18 by Akosua Luna RN) Alzheimer disease (Acute) HTN (hypertension) (Acute) Hypothyroidism (Acute) Left wrist fracture (Acute ~10/2014) Non-healing wound of lower extremity (Acute ~2017) Osteoporosis (Acute) Parathyroid adenoma (Acute ~2012) Recurrent UTI (Acute) Right wrist fracture (Acute ~2006) Physical Therapy Inpatient Evaluation/Re-Eval M1 PT/OT-IP Prior Functional Status Start: 07/24/19 12:04 Freq: NEEDED Status: Active Protocol: Document 07/24/19 09:50 MB (Rec: 07/24/19 12:45 MB [id number]) Medical Review Prior Functional Status Medical History Reviewed Yes Communication Pt is hypoverbal, decreased cognition with history of AD. Follows 1-step commands inconsistently, responds best to communicating with her Mobility and Gait SPT with to w/c, car, bed and chair and also for bathing Activities of Daily Living and IADL's Pt can feed herself with set- up, asst for all other ADLs Prior Functional Level (Other details) 24 hour care from , some other asst for light cleaning and bathing, HHPT and HHnsg from [facility] MOLD SETTER. wishes pt to return home as she has AD and was unsafe at SNF MOLD SETTER Social History Household Members spouse,other Living Arrangements House Number of Floors (Floors) One Floor Number of Stairs To Enter/Railing? Has ramp Home Environment Built-In Shower Seat,Ramp Home Equipment Front Wheel Walker,Manual Wheelchair,Bedside Commode Employment Status Retired M2 PT-IP Current Condition Start: 07/24/19 12:04 Freq: NEEDED Status: Active Protocol: Document 07/24/19 09:50 MB (Rec: 07/24/19 12:45 MB [id number]) Physical Therapy Current Condition Current Condition Evaluation Date 07/24/19 Treatment Diagnosis Impaired mobilty Onset Date Progressive, now POD 1 after I &D Precautions Other Precautions Pt POD 1 s/p I&D right ankle after wound developed from wearing walking boot s/p trimalleolar fx 06/01/19. Orders for WBAT with ASO Weight Bearing Status Weight Bearing Status Weight Bear as Tolerated M3 PT-IP Subjective Start: 07/24/19 12:04 Freq: NEEDED Status: Active Protocol: Document 07/24/19 09:50 MB (Rec: 07/24/19 12:45 MB [id number]) Subjective Physical Therapy Visit Type Type Initial Evaluation Visit Start Time 09:50 Visit Stop Time 11:10 Total Visit Minutes 10 Notes Educated in donning and doffing ASO, elevation of right LE, attempting to unweight surgerical wounds on her medial and lateral ankles (he verbalizes where the wounds are as PT cannot examine post-op and surgeon has not yet seen pt post-op), ed on concern about right LE indention where vitaly wrap is in turnicate position Number of MOLD SETTER Visits 0 Physical Therapy Visit Comments Patient Comments Pt is hypoverbal, answers name , with encouragement. She is not A&O to place, situation . Follows 1 step commands inconsistently and with repetition Patient Goals : to take pt home with his asst, come other asst for house cleaning and respite care for him, HHPT and nsg with Maria Elena. She had this care MOLD SETTER. He specifically refuses SNF d/t her AD and his concerns about her care at a SNF previously Therapy Pain Assessment Pain When Pain Assessed Denied kevin Pain Present Pain Present Denied Pain M4 PT-IP Mobility and Gait Start: 07/24/19 12:04 Freq: NEEDED Status: Active Protocol: Document 07/24/19 09:50 MB (Rec: 07/24/19 12:45 MB [id number]) PT-Bed Mobility Assessment Supine to Sit Supine to Sit Standby Assistance,Head of Bed Elevated Scooting Scooting to Edge of Bed Minimal Assistance PT-Transfer Assessment Transfers Transfer Destination Chair Transfer Technique Stand Pivot Transfer Ability Level of Assist 2 Person Assistance Comments Mobility Comments assists pt to SPT at home. They have a swivel disc that they use occ when she WB through both her feet. Currently, she is not WB much through her right foot s/p I&D yesterday and she has trouble following commands in the hospital. She performs mobility better with commands and with him in front for SPT to the left. PT behind, holding gait belt and assisting to shift her hips to the left. PT-Balance Assessment Sitting Balance and Reactions Static Sitting Balance Ability Fair Dynamic Sitting Balance Ability Poor Comments Other Balance Tests/Deviations/Treatment Pt has trouble scooting : forward in the bed and requires min A from PT to pull pa forward M5 PT-IP Objective Assessments Start: 07/24/19 12:04 Freq: NEEDED Status: Active Protocol: Document 07/24/19 09:50 MB (Rec: 07/24/19 12:45 MB [id number]) Orientation Orientation/Cognition Level of Alertness Confusional State Orientation Name,Birthday Safety Awareness Decreased Safety Awareness Memory Description Short Term Impaired,Intermediate Impaired Comments Hx AD and pt reports that pt responds better to him, which PT notes during assessment Gross Range of Motion Upper Extremity ROM Assessment Within Functional Limits Lower Extremity ROM Impairments Limited DF left ankle and pt presents with clonus with rapid DF. Very tight heel cords. Little movement in right ankle and pt s/p ORIF and has dressing and ASO. She can minimally wiggle toes. Strength Comments Strength Comments Pt does not follow commands for MMT. Her UEs are functional for mobility. Sensation Assessment Comments Sensation Comments Cannot follow commands M6 PT-IP Treatment Start: 07/24/19 12:04 Freq: NEEDED Status: Active Protocol: Document 07/24/19 09:50 MB (Rec: 07/24/19 12:47 MB [id number]) Physical Therapy Treatment Education Education Provided Weight Bearing Status,Safety Brace Education Caregiver Other Treatments Other Treatment Performed See comments above for other caregiver education provided M7 PT-IP Assessment and Plan Start: 07/24/19 12:04 Freq: NEEDED Status: Active Protocol: Document 07/24/19 09:50 MB (Rec: 07/24/19 12:45 MB [id number]) PT Summary Assessment and Plan Potential Rehabilitation Potential Fair Status of Condition at Evaluation Evolving Summary Impairments ROM,Strength,Balance,Cognition ,Bed Mobility,Transfers Assessment Summary Pt is a 73 y/o female presenting with decreased mobility, ankle and foot ROM and safety awareness s/p I&D right ankle yesterday. Pt underwent ORIF right ankle on 06/01/19 after trimalleolar fx. Her , Fabricio, is very attentive and has been caring for her at home and provides 24 hour asst. He does have other asst at home for house tasks and respite care for him . He would like for pt to go home with his asst and previous HH services. He specifically declines SNF given pt has AD and he had to remove her from SNF previously d/t safety concerns. Pt does respond more readily to this date for mobility commands and SPT to the left to the chair. is in front of pt and PT assists with gait belt behind patient to help move hips. Hospital chair arm does not go down and she requires increased asst to clear hips. states that pt is to d/c in two days and this date, surgeon has not yet assessed pt and right LE post-op wound. Per chart, pt to d/c today. Case management to check in with patient and . Pt would benefit from 1 more PT treatment to assess w/c transfer with assisting pt. Pt tends to posterior lean and so PT is concerned that scoot pivot/ slide board transfer may not be appropriate. Given cognitive deficits, performing transfer as she has been with may be the most appropriate. He verbalizes that he is confident he can do it. PT defers second transfer trial to w/c during assessment given ankle wound not yet assessed by surgeon and she required increased time with legs in dependent position to prepare for transfer d/t cognitive deficits. Recommend ongoing daily PT in the acute setting to perform further transfer training with pt and . Recommend 24 hour care and PT and nsg for wound care at d/c. plans to transport pt home via car and w/c transfer . Goals Bed Mobility Goal Standby Assistance Transfer Goal Minimal Assistance Other Goals To clarify: 1-Pt will perform supine<->sit and rolling with SBA from by 07/29/19 to allow safe d/c home. 2-Pt will perform transfer from bed to w/c with +1 asst from by 07/29/19 to allow safe d/c home. Frequency of Treatment Frequency Of Treatment Once a Day Treatment Plan Physical Therapy Treatment Plan Bed Mobility Training,Transfer Training,Therapeutic Exercise ,Balance Retraining,Post Op Education,Discharge Planning Recommendations To Nursing Amount of Assist Needed 2 Person Assist Discharge Recommendations PT Discharge Recommendations Home with 12/05 Assist,Home Health Other Discharge Recommendations Wound care intervention to be taught to given his reports of concern about this previously Equipment Needed for Home Before Has equipment Discharge
--- NOTE | 2019-07-24 13:22 | PM.PNPO.1 ---
Subjective Subjective Date Patient Seen: 07/24/19 Time Patient Seen: 13:22 Interval history: Postop day 1 right ankle irrigation debridement. Doing well pain controlled. Cultures not finalized but today did show some gram-negative bacilli. Curly on vancomycin will add Zosyn. Denies fevers chills nausea or vomiting. Hopes to get home as soon as possible. Exam Vital Signs (past 8 hours): - 07/24/19 10:00 Temperature 97.4 F L Pulse Rate 88 Respiratory Rate 16 Blood Pressure 173/78 H Pulse Oximetry 100 Oxygen Delivery Method Room Air Oxygen Flow Rate 0 Narrative Exam Narrative: Normocephalic atraumatic Breathing unlabored on room Sitting at bedside chair No acute distress. Has been on room Removing bilateral upper and lower extremities. Dorsiflexion plantar flexion intact. Dressing intact. Toes pink and well perfused Objective Labs Result Diagrams: 07/24/19 06:50 07/23/19 17:55 Labs: Laboratory Results - last 24 hr 07/23/19 07/23/19 07/23/19 17:55 17:55 17:55 WBC RBC Hgb Hct MCV MCH MCHC RDW Plt Count ESR 14 Sodium 139 Potassium 4.4 Chloride 102 Carbon Dioxide 30 BUN 13 Creatinine 0.60 Estimated GFR > 60.0 BUN/Creatinine Ratio 21.7 Glucose 135 H Calcium 9.5 C-Reactive Protein 1.1 H 07/24/19 06:50 WBC 8.5 RBC 4.47 Hgb 13.8 Hct 41.1 MCV 92.0 MCH 30.9 MCHC 33.6 RDW 14.2 Plt Count 239 ESR Sodium Potassium Chloride Carbon Dioxide BUN Creatinine Estimated GFR BUN/Creatinine Ratio Glucose Calcium C-Reactive Protein Assessment & Plan Post-op Postoperative Procedures: Procedures Operation Date: 07/23/19 14:30 Actual Procedures Side Surgeon p DEBRIDMENT OF MUSCLE AND FASCIA, RIGHT ANKLE Right Alysha Seay MD Postoperative wound infection. This did not appear to track all the way down to the hardware and the open dehisced area was excised and then closed primarily. Will await final cultures anticipate possibly 1-2 weeks of IV antibiotics followed by oral or potentially primary oral option depending on final culture. Will do wound check on Friday. May weight bear as tolerated. Wear ASO when up and walking but may have this off in bed. Quality VTE Deep Vein Thrombosis/Pulmonary Embolism Present on Admission: No
[2019-07-24 13:30] VITALS: BP 140/74; PULSE 85; RESP 16; TEMP 37.2; O2SAT 100
[2019-07-24] MEDS: PIPERACILLIN-TAZO 3.375 GM/50 ML FROZ.PIGGY IV ×2 (13:32→21:07)
--- NOTE | 2019-07-24 15:40 | CM.DANOTE ---
Addendum entered by Sarai Mayorga LPN 07/24/19 15:43: Pt was found sitting calmly up in bedside chair, folding a piece of paper. She smiles with introduction. Her Fabricio: cell: [phone] confirms that he has been caring for pt at home since initial ankle fracture and surgical repair in May and a brief stay in a snf setting. Maria Elena MATSON has been following pt at home: RN/OT/PT/LEAD ACCOUNTANT. Fabricio is aware that IV antibiotics are probable. Dr. Galdamez indicates in her documentation today that pt MAY be able to go home on oral medication depending on the cultures but a PICC is planned and very probable that 2 weeks IV antibiotics will be needed. Is unclear if ID will be consulted...will attempt to find out tomorrow. Ortho PA Tessa was here today as was Dr. Seay but only briefly between surgeries. Both did have a discussion with DENIA Lugo. Admission status: has now been confirmed: INPT: as of 07/23: per DENIA Lugo. Payer: Medicare and [facility] Jayne Regalado says he did injure his back in the process of caring for his and has had orthopedic intervention with a plan at a later date for spinal surgery. He says this will not stop his plan of taking his home at d/c as because of her Alzheimers disease he says this is the only plan that will work for them. Discussed the IV antibiotic plan and need for more specific information in order to proceed. Agreed to see him tomorrow after Team Rounds...He says that regardless of whether Medicare will pay for this in home setting that is what they will likely do but he is very open to further discussion re the specifics. Did explain that his would not be done by Maria Elean MATSON... Will follow up tomorrow as noted. PT did see pt today. Pt is currently WBAT on RLE with ASO on when she is out of bed. Dr. Seay plans to do a wound check tomorrow with pt. Original Note: Discharge Planning/Care Management DCP: assessment: case received, EMR reviewed. Met with pt and her this afternoon after Dr. Galdamez had clarified the POC and the admission status. Introduced self and role. CM Discharge Assessment Start: 07/24/19 15:36 Freq: Status: Active Protocol: Document 07/24/19 15:36 ITV (Rec: 07/24/19 15:40 ITV [id number]) Discharge Planning Assessment Advance Directives? Yes: DPOA for health care Advance Directives on File Yes History Provided By Family Member,Medical Record Prior Living Arrangements House Household Members spouse Type of transporation used prior to Relies on Others admit Independent with ADL's No Is patient alert and oriented? No: advanced Alz dementia Needs Assistance With Bathing,Eating,Grooming,Meal Prep,Toileting,Managing Medications,Home Chores / Shopping Comment feeds self with setup Comment is current with Maria Elena MATSON RN/PT/ OT/LEAD ACCOUNTANT Comment has DME: see PT eval notes for overview. has ramp to enty Patient/Family Preference Home with Home Health Comment plus support. Whiteboard Updated in Patient Room with Yes name and ext. # of Principal Software Architect Review Status In Process
[2019-07-24 15:45] VITALS: BP 154/74; PULSE 88; RESP 20; TEMP 37.1; O2SAT 97
--- NOTE | 2019-07-24 19:01 | PC.NURSE ---
Addendum entered by Coretta Stallings R.N. 07/24/19 21:37: Pt condition remains essentially unchanged. Denies any discomfort. Remains pleasantly confused. Call light w/in reach, bed alarm on for pt safety. Continue w/plan of care. Original Note: Pt confused at times. Reoriented easily. Lungs clear, SpO2 94% RA Denies discomfort at this time. Right foot in ankle brace. CMS ++ HL RAC intact/patent. Call light w/in reach, bed alarm on for pt safety.
[2019-07-24 20:13] VITALS: BP 178/78; PULSE 97; RESP 18; TEMP 36.6
[2019-07-25] VITALS (7 sets, daily range): BP systolic 138–162; BP diastolic 69–93; PULSE 63–87; RESP 15–18; TEMP 36.3–36.9; O2SAT 96–99
[2019-07-25] MEDS: PIPERACILLIN-TAZO 3.375 GM/50 ML FROZ.PIGGY IV (05:15)
[2019-07-25 06:09] LABS: Vancomycin Trough 14.5 ug/mL (10-20)
[2019-07-25] MEDS: VANCOMYCIN 1,000 MG/200 ML PIGGYBACK 200 MG IV (06:16)
[2019-07-25] MEDS: VANCOMYCIN TROUGH 1 REQUEST MISC (06:16)
[2019-07-25] MEDS: LEVOTHYROXINE 88 MCG TABLET PO (06:58)
[2019-07-25] MEDS: ENOXAPARIN 40 MG/0.4 ML SYRINGE SUBCUT (08:34)
[2019-07-25] MEDS: LOSARTAN 50 MG TABLET PO (08:34)
[2019-07-25] MEDS: ACETAMINOPHEN 325 MG TABLET 975 MG PO ×2 (08:34→20:37)
[2019-07-25] MEDS: DOCUSATE 100 MG CAPSULE PO ×2 (08:34→20:37)
--- NOTE | 2019-07-25 09:08 | PM.PNPO.1 ---
Subjective Subjective Date Patient Seen: 07/25/19 Time Patient Seen: 09:08 Interval history: Postop day 2 status post debridement and closure wound dehiscence infection right ankle. Cultures did come back positive for E coli andrade susceptible. Patient doing well. Eager to go home. at bedside Exam Vital Signs (past 8 hours): - 07/25/19 04:15 07/25/19 07:00 07/25/19 08:34 Temperature 97.8 F 98.3 F Pulse Rate 69 69 69 Respiratory Rate 16 15 Blood Pressure 162/73 H 147/72 H 142/72 H Pulse Oximetry 97 99 Oxygen Delivery Method Room Air Oxygen Flow Rate 0 Narrative Exam Narrative: Alert oriented no acute distress. at bedside. Unlabored breathing on room air. Heart rate regular rate and rhythm. Upper extremities nontender to palpation. Lower extremities nontender calves are soft. Brisk capillary refill. Intact dorsiflexion plantar flexion bilaterally. Right ankle dressing is removed today unchanged. Sutures intact no erythema no redness no drainage no purulence. New dressing placed. Patient tolerated well. Objective Labs Result Diagrams: 07/24/19 06:50 07/23/19 17:55 Labs: Laboratory Results - last 24 hr 07/25/19 05:37 Vancomycin Trough 14.5 Assessment & Plan Post-op Postoperative Procedures: Procedures Operation Date: 07/23/19 14:30 Actual Procedures Side Surgeon p DEBRIDMENT OF MUSCLE AND FASCIA, RIGHT ANKLE Right Alysha Seay MD Postoperative day: 2 Postoperative status: doing well Postoperative status narrative: Weightbear as tolerated right lower extremity use ASO brace when out of bed. Coli and wound andrade susceptible. Will switch from IV to oral antibiotics with Cipro 750 b.i.d. today-discharge with 2 weeks of Cipro Plan discharge home tomorrow on oral antibiotics after working with physical therapy. Wound check today. Sutures clean dry and intact. May have dressing change as needed. Keep incision dry. No surrounding erythema. Follow-up with Dr. Seay in 2 weeks for suture removal Prescription is on chart. Postoperative plan: routine post-op care Time Spent With Patient Time with patient: less than 15 minutes Quality VTE Deep Vein Thrombosis/Pulmonary Embolism Present on Admission: No
[2019-07-25] MEDS: SODIUM CHLORIDE 0.9% FLUSH 10 ML IV ×2 (10:05→20:38)
[2019-07-25] MEDS: CIPROFLOXACIN 500 MG TABLET PO ×2 (10:05→20:37)
--- NOTE | 2019-07-25 10:54 | PT.IPTN ---
Current Diagnoses Displaced trimalleolar fracture of right lower leg, initial encounter for closed fracture (07/23/19) Infection and inflammatory reaction due to other internal orthopedic prosthetic devices, implants and grafts, initial encounter (07/23/19) Surgery Performed Operation Date: 07/23/19 14:30 Actual Procedures p DEBRIDMENT OF MUSCLE AND FASCIA, RIGHT ANKLE(Right) - Alysha Seay MD Physical Therapy Treatment Note M2 PT-IP Current Condition Start: 07/24/19 12:04 Freq: NEEDED Status: Active Protocol: Document 07/24/19 09:50 MB (Rec: 07/24/19 12:45 MB [id number]) Physical Therapy Current Condition Current Condition Evaluation Date 07/24/19 Treatment Diagnosis Impaired mobilty Onset Date Progressive, now POD 1 after I &D Precautions Other Precautions Pt POD 1 s/p I&D right ankle after wound developed from wearing walking boot s/p trimalleolar fx 06/01/19. Orders for WBAT with ASO Weight Bearing Status Weight Bearing Status Weight Bear as Tolerated M3 PT-IP Subjective Start: 07/24/19 12:04 Freq: NEEDED Status: Active Protocol: Document 07/25/19 10:12 CLB (Rec: 07/25/19 11:38 CLB [id number]) Subjective Physical Therapy Visit Type Type Treatment Note Visit Start Time 10:12 Visit Stop Time 10:54 Total Visit Minutes 38 Notes Pt up on BSC upon arrival. Assist CURRICULUM DESIGNER with standing balance during pericare. Number of BOTTOM STOP ATTACHER Visits 1 Physical Therapy Visit Comments Patient Comments Pt is pleasant and agrees to work with therapy. Patient Goals : to take pt home with his asst, come other asst for house cleaning and respite care for him, HHPT and nsg with Maria Elena. She had this care BOTTOM STOP ATTACHER. He specifically refuses SNF d/t her AD and his concerns about her care at a SNF previously Therapy Pain Assessment Pain When Pain Assessed During Mobility Pain Present Pain Present Denied Pain M4 PT-IP Mobility and Gait Start: 07/24/19 12:04 Freq: NEEDED Status: Active Protocol: Document 07/25/19 10:12 CLB (Rec: 07/25/19 11:38 CLB [id number]) PT-Transfer Assessment Sit to and From Stand Sit to and from Stand Moderate Assistance,2 Person Assistance Equipment Transfer Assistive Device None,Gait Belt,Front Wheeled Walker Transfers Transfer Destination Chair,Bedside Commode Transfer Technique Stand Pivot Transfer Ability Level of Assist 2 Person Assistance Comments Mobility Comments Assisted CURRICULUM DESIGNER with sit<>stand and standing balance during pericare. Pt is placing increased weight in RLE. Pt used FWW for sit<>stand with one step commands but transfers better without walker. Pt needed assistance scooting forward in chair to edge due to pt having difficulty following direction . Pt is unable to maintain standing balance w/o therapist holding onto gait belt as pt has posterior lean and walks feet forward. Pt performed sit<>stand with FWW x3 but was unable to stand properly inside walker w/o Max A x1. Transfer training with would be of a benefit for the pt and at this time. M5 PT-IP Objective Assessments Start: 07/24/19 12:04 Freq: NEEDED Status: Active Protocol: Document 07/24/19 09:50 MB (Rec: 07/24/19 12:45 MB [id number]) Orientation Orientation/Cognition Level of Alertness Confusional State Orientation Name,Birthday Safety Awareness Decreased Safety Awareness Memory Description Short Term Impaired,Delivery Consultant Impaired Comments Hx AD and pt reports that pt responds better to him, which PT notes during assessment Gross Range of Motion Upper Extremity ROM Assessment Within Functional Limits Lower Extremity ROM Impairments Limited DF left ankle and pt presents with clonus with rapid DF. Very tight heel cords. Little movement in right ankle and pt s/p ORIF and has dressing and ASO. She can minimally wiggle toes. Strength Comments Strength Comments Pt does not follow commands for MMT. Her UEs are functional for mobility. Sensation Assessment Comments Sensation Comments Cannot follow commands M6 PT-IP Treatment Start: 07/24/19 12:04 Freq: NEEDED Status: Active Protocol: Document 07/24/19 09:50 MB (Rec: 07/24/19 12:47 MB [id number]) Physical Therapy Treatment Education Education Provided Weight Bearing Status,Safety Brace Education Caregiver Other Treatments Other Treatment Performed See comments above for other caregiver education provided M7 PT-IP Assessment and Plan Start: 07/24/19 12:04 Freq: NEEDED Status: Active Protocol: Document 07/25/19 10:12 CLB (Rec: 07/25/19 11:38 CLB [id number]) PT Summary Assessment and Plan Potential Rehabilitation Potential Fair Status of Condition at Evaluation Evolving Summary Impairments ROM,Strength,Balance,Cognition ,Bed Mobility,Transfers Assessment Summary Pt with posterior lean had difficulty with transfers with FWW. (see mobility comments). Stand pivot transfers with in front and therapist assisting works best. insistant on taking pt home, pt will have HH as well. Goals Bed Mobility Goal Standby Assistance Transfer Goal Minimal Assistance Other Goals To clarify: 1-Pt will perform supine<->sit and rolling with SBA from by 07/29/19 to allow safe d/c home. 2-Pt will perform transfer from bed to w/c with +1 asst from by 07/29/19 to allow safe d/c home. Frequency of Treatment Frequency Of Treatment Once a Day Treatment Plan Physical Therapy Treatment Plan Bed Mobility Training,Transfer Training,Therapeutic Exercise ,Balance Retraining,Post Op Education,Discharge Planning Recommendations To Nursing Amount of Assist Needed 2 Person Assist Discharge Recommendations PT Discharge Recommendations Home with 24/7 Assist,Home Health Other Discharge Recommendations Wound care intervention to be taught to given his reports of concern about this previously Equipment Needed for Home Before Has equipment Discharge
--- NOTE | 2019-07-25 12:02 | CM.DPC ---
DCP: continued: Met with pt and her Fabricio as planned. Dr. Galdamez was here, had confirmed that pt would be able to d/c home on oral antibiotics, not IV and that plan was for a d/c tomorrow after pt again worked with PT. Fabricio confirms that they do want to continue with [facility] but her requests that IRMA Kaufman no longer be part of their care team. He will discuss the specifics of this with the [facility] management if they wish to contact him by phone. He notes that all other interaction with the [facility] team have been very good. Discussed adding social work msw to the RN/OT/PT/HEALTHCARE SCIENCE SPECIALIST team to help them both with any resources and for planning for future. Fabricio readily agrees this will be helpful. He confirms he does have the [facility] Resource Booklet 2019. He says they have a caregiver who comes in from [facility] as part of a program under the [facility]. Will fax updated clinical notes now to Maria Elena and include these d/c planning/cm notes. Have spoken to Carito re the case and she will alert IRMA Vides to follow up with Fabricio as per above. P: home tomorrow. Fabricio hopes they can leave before 1100. [facility] DC summary will need to be faxed to Maria Elena when available.
[2019-07-26 00:55] VITALS: BP 156/87; PULSE 61; RESP 16; TEMP 36.6; O2SAT 99
[2019-07-26 05:30] VITALS: BP 150/65; PULSE 63; RESP 16; TEMP 36.4; O2SAT 95
[2019-07-26] MEDS: LEVOTHYROXINE 88 MCG TABLET PO (06:21)
--- NOTE | 2019-07-26 07:21 | P.DS_ITS ---
History of Present Illness History of Present Illness Date Patient Seen: 07/26/19 Time Patient Seen: 07:21 Chief complaint: [id number] Narrative: Patient denies pain. No fever chills. Patient's is home to assist her. Discharge Providers Provider Discharge Date: 07/26/19 Primary care physician: Skyler Fontana MD Consults: 07/23/19 17:38 Consult to Discharge Planning Routine Comment: IV abx when cx finalize. Home health Consult to Physical Therapy Evaluate & Treat Comment: WBAT - Physician Instructions: Evaluate and Treat Consult to Respiratory Therapy Evaluate & Treat Comment: Physician Instructions: Evaluate and treat 07/25/19 12:18 Consult to Home Health Routine Comment: add social services specialist to [facility] Reason For Exam: resume Maria Elena MATSON RN/PT/OT/COMMERCIAL SALES SPECIALIST services Discharge provider: Chris Jones PA-C Summary Hospital Course Discharge Diagnosis: Postoperative wound dehiscence and infection right trimalleolar ankle fracture, surgical site infection Hospital Course: [address] [address] Operative Note Patient: Jane Cardenas CMR#: [id number] : 6Acct:[id number] Age/Sex: 73 / F Date of Service: 07/23/19 Provider: Alysha Seay MD Operative Date/Time/Diagnoses Date of procedure: 07/23/19 Time of procedure: 15:50 Pre-op diagnosis: Postoperative wound dehiscence and infection right trimalleolar ankle fracture, surgical site infection Post-op diagnosis: same Procedure & Clinicians Procedure: Debridement muscle and fascia right ankle surgical site dehiscence 20 sq cm or less CPT code 38962-53 Primary closure Same procedure as scheduled: Yes Indications: The patient is 73-year-old female that sustained a trimalleolar ankle fracture status post open reduction internal fixation on 06/01/2019. Patient had been doing well postoperatively. Over the last week she was noted to have an area that was rubbing on her boot increased redness drainage and development of wound along the incision line. This had been cared for by her [facility]. This 1st came to my attention yesterday at the patient's regularly scheduled clinic visit. The area was cellulitic and there been wound dehiscence concerning for infection. Given the area full-thickness dehiscence and underlying hardware the patient has been indicated for formal operative irrigation debridement cultures and closure. We have discussed culture appropriate antibiotics with a goal of treatment while maintaining hardware fixation. The patient and her understand and agree with the plan. The risks and benefits of the procedure have been discussed with the patient even opportunity to ask questions. The risks of surgery include but are not limited to infection, malunion, nonunion, persistence of pain, damage to nerves and blood vessels, need for additional procedures., posttraumatic arthritis, DVT, PE, cardiopulmonary complications and . The patient expressed a thorough understanding of the risks and benefits of surgery and has elected to proceed. Consent was signed in the office. Surgeon: Alysha Seay Click Yes if Unassisted: Yes Operative Notes Findings: Since proximal 4 cm of lateral incision with subcutaneous tissue and fibrinous tissue exposed. No exposed hardware. Surrounding erythema. Dehiscence area was excised in elliptical fashion. Down to fascia. No purulence or abscess cavities found. Poor quality nonviable tissue was debrided. Peroneal tendons were exposed in the posterior aspect of the wound and the plate more anterior. Wound was thoroughly irrigated and closed in layers primarily with subcutaneous absorbable sutures and nylon in the skin. Closure Type: primary Specimen(s): other (Tissue for culture) Estimated Blood Loss (mL): 2 Blood products transfused: none Tourniquet time (min): 3 Patient taken to the operating room for the above-mentioned procedure. Patient back in her room recovering well as in stable condition. Patient was on IV vancomycin and Zosyn. Patient switched to oral antibiotics, Cipro on July 25, 2019. She will be discharged home on oral antibiotics x2 weeks. Exam Vital Signs (past 8 hours): - 07/26/19 00:55 07/26/19 05:30 Temperature 97.9 F 97.5 F L Pulse Rate 61 63 Respiratory Rate 16 16 Blood Pressure 156/87 H 150/65 H Pulse Oximetry 99 95 Oxygen Delivery Method Room Air Oxygen Flow Rate 0 Narrative Exam Narrative: Pleasant 74-year-old female resting comfortably in bed. Right ankle dressing is clean, dry and intact. Motor function is intact distally. Sensation grossly intact to light touch. Right leg is warm and dry. Objective Labs Result Diagrams: 07/24/19 06:50 07/23/19 17:55 Labs: [facility] CLIA ID [id number] [address] [place] [address], [address] RUN DATE: 07/26/19 Specimen Inquiry PAGE 1 RUN TIME: 725 Name: Jane Cardenas Age/Sex: 73/F Attend Dr: Alysha Seay MD Unit#: [id number] : 1945Location: AC 206-1 Re07/23/19 Disch: Status: REG SDC SPEC #: [id number] RITU: 07/23/19 STATUS: RES REQ #: [id number] SPDESC: RECD: 07/23/[address]: Alysha Seay MD SOURCE: Ankle Rt ENTR: 07/23/[address]: FAX TO: ORDERED: WOUND Cx and GS COMMENTS: Comment TISSUE FROM RIGHT ANKLE SURGICAL SITE Procedure Result Verified Site Gram Stain Final 07/23/191906 No cells/ Organisms seen No cells or organisms seen White blood cells No WBC seen Aerobic Culture for wounds Final 07/25/19803 Organism 1 Escherichia coli Growth HEAVY 1. Escherichia coli M.I.C. RX --------- --- * Amikacin S * Ampicillin S * Ampicillin/Sulbactam S * Aztreonam S * Cefazolin S * Cefepime S Cefalotin S * Cefotetan S * Ceftizoxime S * Ceftriaxone S * Cefuroxime S * Ciprofloxacin S * Doripenem S * Ertapenem S * Gentamicin S * Imipenem S * Levofloxacin S * Meropenem S * Moxifloxacin S * Nalidixic Acid S * Norfloxacin S * Piperacillin S * Ticarcillin S * Tigecycline S * Tobramycin S * Trimethoprim/Sulfamethoxazole S * Piperacillin/Tazobactam S Anaerobic Culture Preliminary 07/25/19906 Discharge Plan Discharge Plan Patient Disposition: Home Discharge comment: home after PT Discharge Med Rec/Prescriptions Prescriptions: New ciprofloxacin HCl [Cipro] 500 mg Tablet 500 mg PO BID 14 Days Qty: 28 RF: 0 Continued denosumab [Prolia] 60 mg/mL syringe 60 mg SUBCUT [id number] RF: 0 losartan 50 mg tablet 50 mg PO DAILY RF: 0 levothyroxine 88 mcg tablet 88 mcg PO QPM RF: 0 acetaminophen 325 mg Tablet 975 mg PO TID Qty: 30 RF: 0 Follow up/Referrals: Alysha Seay MD [Physician] - Discharge Orders: Discharge (Order); Ordered 07/26/19 Ordered By: Chris Jones Provider Discharge Instructions Diet: Diet as Tolerated Activity: Weightbear as tolerated right lower extremity. When out of bed use ASO brace to help with ambulation. Does not need to wear ASO brace while in bed Other treatments: Follow-up with Dr. Seay schedule [facility] in 10-14 days for wound check Skin/Wound/Dressing Care Report to your healthcare provider any signs of infection, such as:: chills, fever, night sweats, increased pain, unusual drainage and unusual redness Dressing: Keep dressing clean dry and intact. If soiled made change in place clean dressing Discharge Data Primary Care Provider: Skyler Fontana Attending Provider: Aylsha Seay Quality VTE Deep Vein Thrombosis/Pulmonary Embolism Present on Admission: No
[2019-07-26 07:50] VITALS: BP 164/81; PULSE 62; RESP 16; TEMP 36.6; O2SAT 93
[2019-07-26] MEDS: ACETAMINOPHEN 325 MG TABLET 975 MG PO (09:04)
[2019-07-26] MEDS: ENOXAPARIN 40 MG/0.4 ML SYRINGE SUBCUT (09:05)
[2019-07-26] MEDS: DOCUSATE 100 MG CAPSULE PO (09:05)
[2019-07-26] MEDS: LOSARTAN 50 MG TABLET PO (09:05)
--- NOTE | 2019-07-26 09:18 | CM.DPC ---
DCP Cont: Patient is to be discharged home today, with as primary caregiver. P.T. has been working with patient. Called and updated [place] at [facility]. Added INCLUSION SPECIALIST to resumption, along with current, RN, P.T, O.T, bath aide. Faxed over orders and discharge summary to [facility]. P: Patient is to be discharged home today with [place] resumption, including INCLUSION SPECIALIST. Jennifer Dover RN/Ux Visual Designer
[2019-07-26] MEDS: CIPROFLOXACIN 500 MG TABLET PO (09:25)
[2019-07-26 10:27] VITALS: O2SAT 98
--- NOTE | 2019-07-26 10:58 | PT.IPTN ---
Current Diagnoses Displaced trimalleolar fracture of right lower leg, initial encounter for closed fracture (07/23/19) Infection and inflammatory reaction due to other internal orthopedic prosthetic devices, implants and grafts, initial encounter (07/23/19) Surgery Performed Operation Date: 07/23/19 14:30 Actual Procedures p DEBRIDMENT OF MUSCLE AND FASCIA, RIGHT ANKLE(Right) - Alysha Seay MD Physical Therapy Treatment Note M2 PT-IP Current Condition Start: 07/24/19 12:04 Freq: NEEDED Status: Discharge Protocol: Document 07/24/19 09:50 MB (Rec: 07/24/19 12:45 MB [id number]) Physical Therapy Current Condition Current Condition Evaluation Date 07/24/19 Treatment Diagnosis Impaired mobilty Onset Date Progressive, now POD 1 after I &D Precautions Other Precautions Pt POD 1 s/p I&D right ankle after wound developed from wearing walking boot s/p trimalleolar fx 06/01/19. Orders for WBAT with ASO Weight Bearing Status Weight Bearing Status Weight Bear as Tolerated M3 PT-IP Subjective Start: 07/24/19 12:04 Freq: NEEDED Status: Discharge Protocol: Document 07/26/19 10:33 CLB (Rec: 07/26/19 12:19 CLB [id number]) Subjective Physical Therapy Visit Type Type Treatment Note Visit Start Time 10:33 Visit Stop Time 10:58 Total Visit Minutes 25 Number of BALL SHAGGER Visits 2 Physical Therapy Visit Comments Patient Comments Pt and are eager to go home. Pt and willing to perform transfer. Patient Goals : to take pt home with his asst, come other asst for house cleaning and respite care for him, HHPT and nsg with Maria Elena. She had this care BALL SHAGGER. He specifically refuses SNF d/t her AD and his concerns about her care at a SNF previously Therapy Pain Assessment Pain When Pain Assessed During Mobility Pain Present Pain Present Denied Pain M4 PT-IP Mobility and Gait Start: 07/24/19 12:04 Freq: NEEDED Status: Discharge Protocol: Document 07/26/19 10:33 CLB (Rec: 07/26/19 12:19 CLB [id number]) PT-Bed Mobility Assessment Supine to Sit Supine to Sit Contact Guard Assistance Scooting Scooting to Edge of Bed Contact Guard Assistance PT-Transfer Assessment Sit to and From Stand Sit to and from Stand Moderate Assistance,1 Person Assistance Equipment Transfer Assistive Device None,Gait Belt Transfers Transfer Destination Chair Transfer Technique Stand Pivot Transfer Ability Level of Assist 1 Person Assistance Comments Mobility Comments Pt's able to assist pt from flat bed to EOB CGA and max verbal and tactile cues. Pt needed cues from therapist to use gait belt for transfer. Pt's able to give pt cues for hand and foot placement to perform stand pivot transfer to chair. Therapist stood along side to assist if needed. M5 PT-IP Objective Assessments Start: 07/24/19 12:04 Freq: NEEDED Status: Discharge Protocol: Document 07/24/19 09:50 MB (Rec: 07/24/19 12:45 MB [id number]) Orientation Orientation/Cognition Level of Alertness Confusional State Orientation Name,Birthday Safety Awareness Decreased Safety Awareness Memory Description Short Term Impaired,Outsole Compressor Impaired Comments Hx AD and pt reports that pt responds better to him, which PT notes during assessment Gross Range of Motion Upper Extremity ROM Assessment Within Functional Limits Lower Extremity ROM Impairments Limited DF left ankle and pt presents with clonus with rapid DF. Very tight heel cords. Little movement in right ankle and pt s/p ORIF and has dressing and ASO. She can minimally wiggle toes. Strength Comments Strength Comments Pt does not follow commands for MMT. Her UEs are functional for mobility. Sensation Assessment Comments Sensation Comments Cannot follow commands M6 PT-IP Treatment Start: 07/24/19 12:04 Freq: NEEDED Status: Discharge Protocol: Document 07/24/19 09:50 MB (Rec: 07/24/19 12:47 MB [id number]) Physical Therapy Treatment Education Education Provided Weight Bearing Status,Safety Brace Education Caregiver Other Treatments Other Treatment Performed See comments above for other caregiver education provided M7 PT-IP Assessment and Plan Start: 07/24/19 12:04 Freq: NEEDED Status: Discharge Protocol: Document 07/26/19 10:33 CLB (Rec: 07/26/19 12:19 CLB [id number]) PT Summary Assessment and Plan Potential Rehabilitation Potential Fair Status of Condition at Evaluation Evolving Summary Impairments ROM,Strength,Balance,Cognition ,Bed Mobility,Transfers Assessment Summary Pt continues to have posterior lean during transfers due to fear of falling. was able to perform stand pivot transfer to chair with pt giving pt proper cues for foot and hand placement for proper sequencing for transfer. Pt's is insistant on taking pt home and has HH set up with OT, PT, nusing and bath aide. OT will arrive in home today to start HH care per pt . Goals Bed Mobility Goal Standby Assistance Transfer Goal Minimal Assistance Other Goals To clarify: 1-Pt will perform supine<->sit and rolling with SBA from by 07/29/19 to allow safe d/c home. 2-Pt will perform transfer from bed to w/c with +1 asst from by 07/29/19 to allow safe d/c home. Frequency of Treatment Frequency Of Treatment Once a Day Treatment Plan Physical Therapy Treatment Plan Bed Mobility Training,Transfer Training,Therapeutic Exercise ,Balance Retraining,Post Op Education,Discharge Planning Other Recommendations and Next Treatment bed mob and transfer as juve Focus stand pivot transfer at this point. step simple command and demonstration, soft spoken tone and quite environment Recommendations To Nursing Amount of Assist Needed 2 Person Assist Discharge Recommendations PT Discharge Recommendations Home with 12/05 Assist,Home Health Other Discharge Recommendations Wound care intervention to be taught to given his reports of concern about this previously Equipment Needed for Home Before Has equipment Discharge
--- NOTE | 2019-07-26 11:22 | PC.NURSE ---
Day shift: Pt left unit in WC with RN student to private car driven by Pt's spouse. Paperwork signed and all questions answered. Per CM and Pt's spouse home health is set up and at 1400 today OT will be at her home. Dressing CDI. Pt provided with new dressing supplies if need. Pt has all personal belonings and the MD script was filled yesterday.
== END 2019-07-26 11:36 | disposition home health service (06) | DRG 857 ==
LOC: OR 14:51 → AC 07-24 15:04
PROVIDERS: Admitting Provider Orthopaedic Surgery Foot and Ankle Surgery; PCP Internal Medicine; Visit Provider Orthopaedic Surgery Foot and Ankle Surgery
PROC: 0LBS0ZZ Excision of Right Ankle Tendon, Open Approach (ICD-10-PCS; principal; 2019-07-23 14:30)
DX: T81.42XA Infection following a procedure, deep incisional surgical site, initial encounter (principal); T81.32XA Disruption of internal operation (surgical) wound, not elsewhere classified, initial encounter; G30.9 Alzheimer's disease, unspecified; F02.80 Dementia in other diseases classified elsewhere, unspecified severity, without behavioral disturbance, psychotic disturbance, mood disturbance, and anxiety; S82.851A Displaced trimalleolar fracture of right lower leg, initial encounter for closed fracture; I10 Essential (primary) hypertension; E03.9 Hypothyroidism, unspecified; B96.29 Other Escherichia coli [E. coli] as the cause of diseases classified elsewhere; Y92.008 Other place in unspecified non-institutional (private) residence as the place of occurrence of the external cause; X50.1XXD Overexertion from prolonged static or awkward postures, subsequent encounter
CPT/HCPCS: 36415; 64447; 64450; 80048; 80202; 85027; 85651; 86140; 87070; 87075; 87077; 87186; 87205; 94760; 97162; 97530; 97535; J0690; J1100; J1650; J2405; J2543; J2704

== ENCOUNTER → 2019-08-05 12:09 | Outpatient (CLI) | payer MEDICARE, OTHER, SELFPAY ==
[2019-07-23 19:30] VITALS: BMI 18.9
[2019-08-05 12:29] LABS: Add Manual Diff / Slide Review NO; Basophils Absolute Auto 100 /uL (0-100); Basophils Percent Auto 0.8 % (0-2); Eosinophils Absolute Auto 0 /uL (0-450); Eosinophils Percent Auto 0.4 % (2-4); Hematocrit 38.3 % (36-46); Hemoglobin 12.8 g/dL (12.0-16.0); Lymphocytes Absolute Auto 1200 /uL (1100-4500); Lymphocytes Percent Auto 10.7 % (25-40); Mean Corpuscular HGB Conc 33.3 % (30-36); Mean Corpuscular Hemoglobin 30.5 PG (26-34); Mean Corpuscular Volume 91.6 fL (80-100); Monocytes Absolute Auto 700 /uL (0-900); Monocytes Percent Auto 6.3 % (3-14); Neutrophils Absolute Auto 9200 /uL (1500-7000); Neutrophils Percent Auto 81.8 % (50-75); Platelet Count 255 X10^3/uL (150-400); Red Blood Cell Count 4.18 X10^6/uL (4.0-5.2); Red Cell Distribution Width 14.6 % (11.6-14.8); White Blood Cell Count 11.2 X10^3/uL (4.5-11.0)
== END ==
PROVIDERS: PCP Internal Medicine; Visit Provider Orthopaedic Surgery Foot and Ankle Surgery
DX: T84.7XXA Infection and inflammatory reaction due to other internal orthopedic prosthetic devices, implants and grafts, initial encounter (principal)
CPT/HCPCS: 36415; 85025

== ENCOUNTER → 2019-11-01 11:28 | Outpatient (CLI) | payer MEDICARE, OTHER, SELFPAY ==
[2019-07-23 19:30] VITALS: BMI 18.9
--- NOTE | 2019-11-01 | DI.RAD.S_ITS ---
PROCEDURE: XR LUMBAR SPINE 2-3V INDICATIONS: LOW BACK PAIN TECHNIQUE: 3 views of the lumbar spine were acquired. COMPARISON: None. FINDINGS: Bones: 5 [id number] vertebrae are present. There is abnormal bony alignment, convex leftward centered at the T12-L1 level of the thoracolumbar junction. There is a moderate compression fracture involving L1, with a 41% height reduction at the middle third of the L1 vertebral body when compared to the level immediately above.. No vertebral body compression fractures. No suspicious bony lesions. Soft tissues: Overlying bowel gas pattern is normal. No suspicious soft tissue calcifications. IMPRESSION: L1 moderate compression fracture with a 41% vertebral body height reduction when compared to the T12 level immediately above. This likely represents an acute compression fracture, please correlate clinically. MR scanning could accurately assess for chronicity of that abnormality if clinically warranted. Dictated by: Michoacano Perez M.D. on 11/01/2019 at 12:38 Approved by: Michoacano Perez M.D. on 11/01/2019 at 12:41
== END ==
PROVIDERS: PCP Internal Medicine; Visit Provider Physician Assistant
DX: M54.5 Low back pain (principal); M48.56XA Collapsed vertebra, not elsewhere classified, lumbar region, initial encounter for fracture
CPT/HCPCS: 72100

== ENCOUNTER → 2019-11-29 11:57 | Outpatient (CLI) | payer MEDICARE, OTHER, SELFPAY ==
[2019-07-23 19:30] VITALS: BMI 18.9
[2019-11-29 14:16] LABS: Vitamin B12 537 pg/mL (239-931)
== END ==
PROVIDERS: PCP Internal Medicine; Referring Provider Physician Assistant; Visit Provider Physician Assistant
DX: M81.0 Age-related osteoporosis without current pathological fracture (principal)
CPT/HCPCS: 36415; 82607